=== PATIENT | male | born 1960 | race Caucasian/White ===

== ENCOUNTER 2023-12-15 13:29 | Inpatient (IN) | payer BC ==
--- NOTE | 2023-12-15 13:35 | ERPHSYRPT ---
- History of Present Illness Time Seen by Provider: 12/15/23 13:35 Source: patient, family Exam Limitations: no limitations Physician History: This is a 63-year-old white male who came in by private vehicle who has no known drug allergies and a remote history of dizziness in the past and presents again with dizziness symptoms that began a week ago and has worsened throughout the week. Associated with this was an abscess of his right "buttock" as he described it. He was placed on Bactrim DS. His symptoms are not better. The abscess opened up and has been draining. Patient drove himself into the hospital. His systolic blood pressure was 98 on arrival. He also was orthostatic. Patient states that he drinks beer daily and did have a drinks of beer "on my way here". Patient denies head injury. Patient does not have chest pain. Patient does not have shortness of breath. He has no abdominal pain. Timing/Duration: week(s) (1), worse Severity: moderate Character of Deficits: none Deficits: no difficulties Baseline/Normal Cognition: alert oriented x 3 Current Cognition: alert oriented x 3 Associated Symptoms: weakness, No confusion, No loss of consciousness, No nausea, No vomiting, No seizures, No slurred speech, No chest pain, No headache Allergies/Adverse Reactions: No Known Drug Allergies Allergy (Unverified 03/17/12 13:33) Home Medications: Lisinopril 20 mg PO DAILY 03/17/12 [History] Bupropion HCl 150 mg Sr [Wellbutrin SR 150 MG] 150 mg PO BID 08/08/18 [History] Diclofenac Sodium [Voltaren] 75 mg PO DAILY 08/08/18 [History] Smz/Tmp Ds Tablet [Bactrim Ds Tablet] 1 tab PO Q12H 12/15/23 [History] Hx Tetanus, Diphtheria Vaccination/Date Given: Yes (UNKNOWN) Hx Influenza Vaccination/Date Given: No Hx Pneumococcal Vaccination/Date Given: No Travel Risk - International Travel Have you traveled outside of the country in past 3 weeks: No - Emerging Infectious Disease Are you exhibiting symptoms associated with any current EIDs: No - Review of Systems Eyes: No Symptoms, Discharge Ears, Nose, & Throat: No Symptoms Respiratory: No Symptoms Cardiac: No Symptoms Abdominal/Gastrointestinal: No Symptoms Genitourinary Symptoms: No Symptoms Musculoskeletal: No Symptoms Skin: Cellulitis (And associated abscess right perineal region) Neurological: Dizziness Psychological: No Symptoms Endocrine: No Symptoms Hematologic/Lymphatic: No Symptoms Immunological/Allergic: No Symptoms All Other Systems: Reviewed and Negative - Past Medical History Pertinent Past Medical History: Yes Neurological History: No Pertinent History ENT History: No Pertinent History Cardiac History: Arrhythmia, High Cholesterol, Hypertension Respiratory History: No Pertinent History Endocrine Medical History: No Pertinent History Musculoskeletal History: Arthritis, Degenerative Disk Disease GI Medical History: Gallbladder Disease, GI Bleed, Ulcer History: No Pertinent History Psycho-Social History: Anxiety Male Reproductive Disorders: No Pertinent History - Past Surgical History Past Surgical History: Yes Neuro Surgical History: No Pertinent History Cardiac: No Pertinent History Respiratory: No Pertinent History Gastrointestinal: Cholecystectomy Genitourinary: No Pertinent History Musculoskeletal: Orthopedic Surgery Male Surgical History: No Pertinent History Other Surgical History: 2 back surgeries elbow surgery - Social History Smoking Status: Current every day smoker How long have you smoked: 35 yrs Exposure to second hand smoke: Yes Drug Use: none Patient Lives Alone: No - Nursing Vital Signs Nursing Vital Signs: Initial Vital Signs Temperature 98.4 F 12/15/23 13:43 Pulse Rate 71 12/15/23 13:43 Respiratory Rate 20 12/15/23 13:43 Blood Pressure 125/73 12/15/23 13:43 O2 Sat by Pulse Oximetry 98 12/15/23 13:43 Pain Scale Pain Intensity 5 - David Coma Scale Best Eye Response ([place]): (4) open spontaneously Best Verbal Response (David): (5) oriented Best Motor Response (David): (6) obeys commands [place] Total: 15 - Physical Exam General Appearance: no apparent distress, alert, anxiety, other (Patient smells of alcohol) Eye Exam: bilateral eye: normal inspection, PERRL, EOMI Ears, Nose, Throat Exam: normal ENT inspection, TMs normal, pharynx normal, moist mucous membranes Neck Exam: normal inspection, non-tender, supple, full range of motion Respiratory: normal breath sounds, lungs clear, airway intact, No chest tenderness, No respiratory distress Cardiovascular: regular rate/rhythm, normal heart sounds, normal peripheral pulses Gastrointestinal: soft, normal bowel sounds, No tenderness Male Genitalia: other (Right perineal abscess. Scrotum not involved. Drainage of pus from the abscess opening. 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 There is right perineal cellulitis associated. Scrotum not involved) SpO2 Interpretation: normal O2 Delivery: Room Air - Course Nursing assessment & vital signs reviewed: Yes EKG Interpreted by Me: RATE (99), Sinus Rhythm, LAFB, NORMAL INTERVALS, Right Bundle Branch Block, Other (No acute ischemia. QTc 459) Ordered Tests: Active Orders 24 hr Category Date Time Status [employer] STAT Care 12/15/23 14:00 Active Clean Catch Urine Specimen STAT Care 12/15/23 13:55 Active EKG-ER Only STAT Care 12/15/23 14:00 Active IV Insertion STAT Care 12/15/23 13:59 Active Orthostatic Vital Signs STAT Care 12/15/23 13:52 Active HEAD WITHOUT CONTRAST [CT] Stat Exams 12/15/23 13:56 Completed BLOOD CULTURE Stat Lab 12/15/23 14:15 Received CBC W DIFF Stat Lab 12/15/23 14:10 Completed CMP Stat Lab 12/15/23 13:30 Completed CULTURE,URINE Stat Lab 12/15/23 16:14 Received CULTURE,WOUND Stat Lab 12/15/23 13:59 Received ETHYL ALCOHOL Stat Lab 12/15/23 13:30 Completed Lactic Acid Stat Lab 12/15/23 14:20 Completed Lactic Acid Stat Lab 12/15/23 16:30 Stop Req MAGNESIUM Stat Lab 12/15/23 13:30 Completed TROPONIN Q4H Lab 12/15/23 13:30 Completed TROPONIN Q4H Lab 12/15/23 18:00 Ordered TROPONIN Q4H Lab 12/15/23 22:00 Ordered UA W/RFX UR CULTURE Stat Lab 12/15/23 16:14 Completed Urine Triage Profile Stat Lab 12/15/23 16:14 Completed Medication Summary Generic Name Dose Route Start Last Admin Trade Name Freq PRN Reason Stop Dose Admin Sodium Chloride 1,000 mls @ 250 mls/hr 12/15/23 17:30 12/15/23 17:38 Sodium Chloride 0.9% 1000 Ml IV 01/14/24 17:29 250 mls/hr .Q4H ALEXANDREA Administration Discontinued Medications Generic Name Dose Route Start Last Admin Trade Name Juany PRN Reason Stop Dose Admin Sodium Chloride 1,000 mls @ 999 mls/hr 12/15/23 13:55 12/15/23 15:04 Sodium Chloride 0.9% 1000 Ml IV 12/15/23 14:55 Infused .Q1H1M STA Infusion Sodium Chloride Confirm 12/15/23 14:01 Sodium Chloride 0.9% 1000 Ml Administered 12/15/23 14:02 Dose 1,000 mls @ ud .ROUTE .STK-MED ONE Piperacillin Sod/Tazobactam 100 mls @ 200 mls/hr 12/15/23 15:50 12/15/23 16:06 Sod 3.375 gm/ Sodium Chloride IV 12/15/23 16:19 200 mls/hr STAT ONE Administration Sodium Chloride Confirm 12/15/23 16:01 Sodium Chloride 100ml Mini-Bag Plus Administered 12/15/23 16:02 Dose 100 mls @ ud IV .STK-MED ONE Ondansetron HCl 4 mg 12/15/23 13:56 12/15/23 14:04 Ondansetron Hcl 4 Mg/2 Ml Vial IV 12/15/23 13:57 4 mg STAT ONE Administration Ondansetron HCl Confirm 12/15/23 14:00 Ondansetron Hcl 4 Mg/2 Ml Vial Administered 12/15/23 14:01 Dose 4 mg .ROUTE .STK-MED ONE Piperacillin Sod/Tazobactam Sod Confirm 12/15/23 15:59 Piperacillin/Tazobactam Sodium 3.375 Gm Vial Administered 12/15/23 16:00 Dose 3.375 gm IV .STK-MED ONE Lab/Rad Data: Laboratory Result Diagrams 12/15/23 14:10 12/15/23 13:30 Laboratory Results 12/15/23 12/15/23 12/15/23 Range/Units 16:14 16:14 14:20 WBC (4.23-9.07) x10^3/uL RBC (4.63-6.08) x10^6/uL Hgb (13.7-17.5) g/dL Hct (40.1-51.0) % MCV (79.0-92.2) fL MCH (25.7-32.2) pg MCHC (32.3-36.5) g/dL RDW (11.6-14.4) % Plt Count (163-337) x10^3/uL MPV (9.4-12.4) fL Gran % (34.0-67.9) % Immature Gran % (Auto) (0.001-0.429) % Nucleat RBC Rel Count (0.00-0.2) % Eos # (Auto) (0.04-0.54) x10^3/uL Immature Gran # (Auto) (0.001-0.031) x10^3u/L Absolute Lymphs (auto) (1.32-3.57) x10^3/uL Absolute Monos (auto) (0.30-0.82) x10^3/uL Absolute Nucleated RBC (0.00-0.012) x10^3u/L Lymphocytes % (21.8-53.1) % Monocytes % (5.3-12.2) % Eosinophils % (0.8-7.0) % Basophils % (0.2-1.2) % Absolute Granulocytes (1.78-5.38) x10^3/uL Basophils # (0.01-0.08) x10^3/uL Sodium (135-145) mmol/L Potassium (3.5-5.1) mmol/L Chloride (98-107) mmol/L Carbon Dioxide (22-30) mmol/L Anion Gap (5-15) MEQ/L BUN (9-20) mg/dL Creatinine (0.66-1.25) mg/dL Estimated GFR ML/MIN Glucose (74-106) mg/dL Lactic Acid 2.0 (0.4-2.0) Calcium (8.4-10.2) mg/dL Magnesium (1.6-2.3) mg/dL Total Bilirubin (0.2-1.3) mg/dL AST (17-59) U/L ALT (0-50) U/L Alkaline Phosphatase (38-126) U/L Troponin I (0.000-0.033) ng/mL Serum Total Protein (6.3-8.2) g/dL Albumin (3.5-5.0) g/dL Urine Color Dark Yellow (Yellow) Urine Appearance Cloudy A (Clear) Urine pH 6.0 (4.6-8.0) Ur Specific [place] 1.025 (1.005-1.030) Urine Protein 30 (Negative) Urine Glucose (UA) Negative (Negative) mg/dL Urine Ketones Trace A (Negative) Urine Blood Negative (Negative) Urine Nitrite Negative (Negative) Urine Bilirubin Negative (Negative) Urine Urobilinogen 1.0 A (0.2) mg/dL Ur Leukocyte Esterase Trace A (Negative) U Hyaline Cast (Auto) 0-2 (0-2) /LPF Urine Microscopic RBC 0-2 (0-5) /HPF Urine Microscopic WBC 0-2 (0-5) /HPF Ur Epithelial Cells Few (None Seen) /HPF Urine Bacteria Few A (None Seen) /HPF Urine Culture Reflexed YES (NO) Urine Opiates Level NEGATIVE (NEGATIVE) Ur Methadone NEGATIVE (NEGATIVE) Urine Barbiturates NEGATIVE (NEGATIVE) Ur Phencyclidine (PCP) NEGATIVE (NEGATIVE) Urine Amphetamine NEGATIVE (NEGATIVE) U Benzodiazepine Level NEGATIVE (NEGATIVE) Urine Cocaine NEGATIVE (NEGATIVE) Urine Marijuana (THC) NEGATIVE (NEGATIVE) Ethyl Alcohol (0-10) mg/dL Slides for Path Review 12/15/23 12/15/23 12/15/23 Range/Units 14:10 13:30 13:30 WBC 20.2 H (4.23-9.07) x10^3/uL RBC 4.01 L (4.63-6.08) x10^6/uL Hgb 13.7 (13.7-17.5) g/dL Hct 40.2 (40.1-51.0) % MCV 100.2 H (79.0-92.2) fL MCH 34.2 H (25.7-32.2) pg MCHC 34.1 (32.3-36.5) g/dL RDW 12.9 (11.6-14.4) % Plt Count 427 H (163-337) x10^3/uL MPV 9.5 (9.4-12.4) fL Gran % 80.9 H (34.0-67.9) % Immature Gran % (Auto) 1.6 H (0.001-0.429) % Nucleat RBC Rel Count 0.0 (0.00-0.2) % Eos # (Auto) 0.02 L (0.04-0.54) x10^3/uL Immature Gran # (Auto) 0.32 H (0.001-0.031) x10^3u/L Absolute Lymphs (auto) 1.34 (1.32-3.57) x10^3/uL Absolute Monos (auto) 2.10 H (0.30-0.82) x10^3/uL Absolute Nucleated RBC 0.00 (0.00-0.012) x10^3u/L Lymphocytes % 6.7 L (21.8-53.1) % Monocytes % 10.4 (5.3-12.2) % Eosinophils % 0.1 L (0.8-7.0) % Basophils % 0.3 (0.2-1.2) % Absolute Granulocytes 16.31 H (1.78-5.38) x10^3/uL Basophils # 0.06 (0.01-0.08) x10^3/uL Sodium 135 (135-145) mmol/L Potassium 4.5 (3.5-5.1) mmol/L Chloride 102 (98-107) mmol/L Carbon Dioxide 18 L (22-30) mmol/L Anion Gap 20.7 H (5-15) MEQ/L BUN 23 H (9-20) mg/dL Creatinine 1.58 H (0.66-1.25) mg/dL Estimated GFR 49.2 ML/MIN Glucose 105 (74-106) mg/dL Lactic Acid (0.4-2.0) Calcium 9.8 (8.4-10.2) mg/dL Magnesium 2.1 (1.6-2.3) mg/dL Total Bilirubin 0.30 (0.2-1.3) mg/dL AST 46 (17-59) U/L ALT 53 H (0-50) U/L Alkaline Phosphatase 177 H (38-126) U/L Troponin I < 0.012 (0.000-0.033) ng/mL Serum Total Protein 7.8 (6.3-8.2) g/dL Albumin 4.2 (3.5-5.0) g/dL Urine Color (Yellow) Urine Appearance (Clear) Urine pH (4.6-8.0) Ur Specific [place] (1.005-1.030) Urine Protein (Negative) Urine Glucose (UA) (Negative) mg/dL Urine Ketones (Negative) Urine Blood (Negative) Urine Nitrite (Negative) Urine Bilirubin (Negative) Urine Urobilinogen (0.2) mg/dL Ur Leukocyte Esterase (Negative) U Hyaline Cast (Auto) (0-2) /LPF Urine Microscopic RBC (0-5) /HPF Urine Microscopic WBC (0-5) /HPF Ur Epithelial Cells (None Seen) /HPF Urine Bacteria (None Seen) /HPF Urine Culture Reflexed (NO) Urine Opiates Level (NEGATIVE) Ur Methadone (NEGATIVE) Urine Barbiturates (NEGATIVE) Ur Phencyclidine (PCP) (NEGATIVE) Urine Amphetamine (NEGATIVE) U Benzodiazepine Level (NEGATIVE) Urine Cocaine (NEGATIVE) Urine Marijuana (THC) (NEGATIVE) Ethyl Alcohol 48 H (0-10) mg/dL Slides for Path Review YES - Progress Progress: improved Progress Note: 12/15/23 14:05 My medical decision making and the assignment of moderate to high complexity in this patient's medical issue today is based on review of the patient's past medical history, review the patient's medication list, reviewed patient drug allergy list, history present illness and physical findings on examination. The workup in this patient includes placement of intravenous line, obtain orthosta tic vital signs, twelve-lead EKG, lactic acid level, magnesium level, CBC, CMP, troponin level, urinalysis, urine drug screen, ethyl alcohol level, CT scan of the head and wound culture. We will also provide the patient with 4 mg intravenous Zofran and initial 1 L of normal saline crystalloid. Differential diagnosis includes but is not limited to sepsis, alcohol intoxication, electrolyte abnormalities, anemia, arrhythmia, dehydration 12/15/23 14:06 12/15/23 15:[address] scan of the head without contrast was interpreted by the radiologist and I reviewed the impression. The impression states bilateral insular cortex old lacunar infarcts. There are involutional brain changes. 12/15/23 18:[address] Bullock our telehospitalist as well as our general surgeon on- call, Dr. Hawley. I reviewed the patient presenting complaint, physical findings, vital signs on admission and results of our workup including CT scan of the head and laboratory data results. I interpreted the patient's laboratory data results. The patient does have a significant leukocytosis with a left shift. Our telehospitalist agreed to place this patient in observation as long as we could obtain a consultation by general surgery. Dr. Hawley, stated that he will see the patient in consultation. The patient is to be n.p.o. after midnight tonight. Zosyn intravenously is fine. Counseled pt/family regarding: lab results, diagnosis, rad results Medical Desision Making - Diagnostic Testing Diagnostic test were ordered, analyzed, and reviewed by me: Yes Radiological Interpretation: Reviewed by me, Teleradiologist Report - Risk of complications The pt has a high risk of morbidity or mortality based on: Decision regarding hospitilization or escalation of hosp level of care - Departure Departure Disposition: Observation Clinical Impression: Leukocytosis, Perineal abscess, superficial Condition: Fair Critical Care Time: No Referrals: [facility] DEVELOPMENT DIRECTOR [Primary Care Provider] - Follow up/PCP as directed
[2023-12-15] MEDS ORDERED: Zofran 4 MG/2 ML VIAL ONE (14:00)
[2023-12-15] MEDS ORDERED: Sodium Chloride 0.9% 1000 ML 1,000 ML ONE ×2 (14:01→17:37)
[2023-12-15] MEDS: Sodium Chloride 0.9% 1000 ML 1,000 ML IV STA (14:03)
[2023-12-15] MEDS: Zofran 4 MG/2 ML VIAL IV ONE (14:04)
[2023-12-15 14:23] LABS: Absolute Neutrophil Ct (ANC) 16.31 x10^3/uL (1.78-5.38); BASOPHIL % 0.3 % (0.2-1.2); Basophil (Absolute #) 0.06 x10^3/uL (0.01-0.08); Eosinophil % 0.1 % (0.8-7.0); Eosinophil (Absolute #) 0.02 x10^3/uL (0.04-0.54); Hematocrit 40.2 % (40.1-51.0); Hemoglobin 13.7 g/dL (13.7-17.5); IMMATURE GRAN # 0.32 x10^3u/L (0.001-0.031); IMMATURE GRAN % 1.6 % (0.001-0.429); Lymphocyte (Absolute #) 1.34 x10^3/uL (1.32-3.57); Lymphocytes % 6.7 % (21.8-53.1); Mean Cell Volume 100.2 fL (79.0-92.2); Mean Corpuscular Hemoglobin 34.2 pg (25.7-32.2); Mean Corpuscular Hgb Concent. 34.1 g/dL (32.3-36.5); Mean Platelet Volume 9.5 fL (9.4-12.4); Monocytes % 10.4 % (5.3-12.2); Neutrophil % 80.9 % (34.0-67.9); Platelet Count 427 x10^3/uL (163-337); Red Blood Count 4.01 x10^6/uL (4.63-6.08); Red Cell Distribution Width 12.9 % (11.6-14.4); White Blood Count 20.2 x10^3/uL (4.23-9.07)
[2023-12-15 14:37] LABS: ALBUMIN 4.2 g/dL (3.5-5.0); ANION GAP 20.7 MEQ/L (5-15); BILIRUBIN,TOTAL 0.3 mg/dL (0.2-1.3); Calcium 9.8 mg/dL (8.4-10.2); Creatinine 1 1.58 mg/dL (0.66-1.25); EST GLOMERULAR FILTRATION RATE 49.2 ML/MIN; MAGNESIUM 2.1 mg/dL (1.6-2.3); Potassium 4.5 mmol/L (3.5-5.1); Total Protein 7.8 g/dL (6.3-8.2)
[2023-12-15 14:54] LABS: Slide Review 1 YES
--- NOTE | 2023-12-15 15:32 | XRAY ---
CLINICAL HISTORY: Dizziness COMPARISON: None TECHNIQUE: An axial non-contrast CT scan of the brain was performed from the skull base to the high parietal region, and sagittal & coronal reconstructions were done. One of the following dose-reduction techniques was utilized for this exam. Automated exposure control, adjustment of the mA and/or kV according to patient size, and use of iterative reconstruction. CTDI: 53.92mGy; DLP:1016.25mGy-cm. FINDINGS: There are a few tiny hypodense foci noted in the insular cortex bilaterally, suggestive of old lacunar infarcts. Prominent cortical sulci . Mildly dilated supratentorial ventricular system. Newell-white matter differentiation is maintained. No midline shifts or deformity. No intracerebral or extra axial hematoma. Normal CT appearance of the posterior fossa structures namely the cerebellar hemispheres, brainstem, and cerebellar peduncles. The cerebello-pontine angles are clear. The pituitary gland, the pineal gland, and the optic chiasm are unremarkable. The osseous structures in the skull base are unremarkable. No definite calvarium fractures. The scanned paranasal sinuses show left maxillary sinusitis. IMPRESSION: 1. 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 2. Involutional brain changes . Electronically Signed by: Prabhakar Lyn MD. (12/15/2023 15:27:58 EDT)
[2023-12-15] MEDS ORDERED: PIPERACILLIN/TAZOBACTAM IV ONE ×2 (15:59→22:47)
[2023-12-15] MEDS ORDERED: Sodium Chloride 100ML MINI-BAG PLUS 100 ML IV ONE ×2 (16:01→22:48)
[2023-12-15] MEDS: PIPERACILLIN/TAZOBACTAM 3.375 GM in Sodium Chloride 100ML MINI-BAG PLUS 100 ML IV ONE (16:06)
[2023-12-15 16:36] LABS: Amphetamine,Urine NEGATIVE (NEGATIVE); Barbiturate,Urine NEGATIVE (NEGATIVE); Benzodiazepine,Urine NEGATIVE (NEGATIVE); Cocaine,Urine NEGATIVE (NEGATIVE); Methadone,Urine NEGATIVE (NEGATIVE); Opiate,Urine NEGATIVE (NEGATIVE); PCP,Urine NEGATIVE (NEGATIVE); THC,Urine NEGATIVE (NEGATIVE)
[2023-12-15 16:44] LABS: Appearance Cloudy (Clear); Bilirubin Negative (Negative); Blood Negative (Negative); Glucose, Urine Negative (Negative); Ketones Trace (Negative); Leukocyte Esterase Trace (Negative); Nitrite Negative (Negative); Protein,Urine Dip 30 (Negative); RBC 0-2 /HPF (0-5); Specific Gravity 1.025 (1.005-1.030); WBC 0-2 /HPF (0-5)
[2023-12-15 16:45] LABS: ADD URINE CULTURE? YES (NO); Bacteria Few /HPF (None Seen); Epithelial Cells Few /HPF (None Seen); Hyaline Casts 0-2 /LPF (0-2)
[2023-12-15] MEDS: Sodium Chloride 0.9% 1000 ML 1,000 ML IV SCH ×2 (17:38→20:19)
[2023-12-15] MEDS ORDERED: TYLENOL 325 MG PO PRN (18:20)
[2023-12-15] MEDS ORDERED: Zofran 4 MG/2 ML VIAL IV PRN (18:20)
[2023-12-15] MEDS ORDERED: Ativan 1 MG PO PRN (19:08)
[2023-12-15] MEDS ORDERED: Ativan 2 MG/1 ML VIAL IV PRN (19:08)
--- NOTE | 2023-12-15 19:43 | PCM.HP ---
History of Present Illness - Chief Complaint Chief Complaint: Right perineal abscess Date: 12/15/23 History of Present Illness: is a 63 year old male with a history of hypertension, daily alcohol use (6 beers daily x decades, with no history of withdrawal), and recent right perineal/gluteal abscess (treated over the past week with Bactrim) who presented to the hospital with dizziness which was worsening. The abscess and cellulitis have not improved. He denies syncope. In the ED the patient was noted to have orthostasis. He denied chest pain and dyspnea. His last beer was on the morning of presentation. No fevers and chills are reported. - Review of Systems Constitutional: No Symptoms Eyes: No Symptoms Ears, Nose, & Throat: No Symptoms Respiratory: No Symptoms Cardiac: No Symptoms Abdominal/Gastrointestinal: No Symptoms Genitourinary Symptoms: No Symptoms Musculoskeletal: No Symptoms Skin: Cellulitis, Induration Neurological: Dizziness Psychological: No Symptoms Endocrine: No Symptoms Hematologic/Lymphatic: No Symptoms Immunological/Allergic: No Symptoms All Other Systems: Reviewed and Negative Medications & Allergies Home Medications: Home Medication List Lisinopril 20 mg PO DAILY 03/17/12 [History Confirmed 12/15/23] Bupropion HCl 150 mg Sr [Wellbutrin SR 150 MG] 150 mg PO BID 08/08/18 [History Confirmed 12/15/23] Diclofenac Sodium [Voltaren] 75 mg PO DAILY 08/08/18 [History Confirmed 12/15/23] Smz/Tmp Ds Tablet [Bactrim Ds Tablet] 1 tab PO Q12H 12/15/23 [History Confirmed 12/15/23] Allergies/Adverse Reactions: Allergies Allergy/AdvReac Type Severity Reaction Status Date / Time No Known Drug Allergies Allergy Unverified 03/17/12 13:33 - Past Medical History Past Medical History: Yes Neurological History: No Pertinent History ENT History: No Pertinent History Cardiac History: Arrhythmia, High Cholesterol, Hypertension Respiratory History: No Pertinent History Endocrine Medical History: No Pertinent History Musculoskelatal History: Arthritis, Degenerative Disk Disease GI Medical History: Gallbladder Disease, GI Bleed, Ulcer History: No Pertinent History Pyscho-Social History: Anxiety Male Reproductive Disorders: No Pertinent History - Past Surgical History Past Surgical History: Yes Neuro Surgical History: No Pertinent History Cardiac History: No Pertinent History Respiratory Surgery: No Pertinent History GI Surgical History: Cholecystectomy Genitourinary Surgical Hx: No Pertinent History Musculskeletal Surgical Hx: Orthopedic Surgery Male Surgical History: No Pertinent History Other Surgical History: 2 back surgeries elbow surgery - Social History Smoking Status: Current every day smoker How long have you smoked: 35 yrs Exposure to second hand smoke: Yes Alcohol: Daily Drug Use: none - Social Determinants of Health Will the patient participate in the screening: Yes Do you worry about a steady place to live?: No Do you have any problems with any of the following?: No known problems In the past 12 months,have you had to go without utilities?: No Have you or anyone in your house had to go without enough: No Transportation Issues: No Has anyone in your support network made you feel unsafe?: No - Physical Exam Vital Signs: Vital Signs - 24 hr Temp Pulse Resp BP BP Pulse Ox 12/15/23 16:00 108 H 16 104/73 67 L 12/15/23 15:30 93 H 22 116/70 96 12/15/23 13:43 98.4 F 71 20 125/73 98 General Appearance: no apparent distress, alert Neurologic Exam: alert, oriented x 3, cooperative, phys ther II-XII nml as tested, normal mood/affect, nml cerebellar function Eye Exam: PERRL/EOMI, eyes nml inspection Ears, Nose, Throat Exam: normal ENT inspection Neck Exam: normal inspection, non-tender, supple, full range of motion Respiratory Exam: normal breath sounds, lungs clear Cardiovascular Exam: regular rate/rhythm, normal heart sounds Gastrointestinal/Abdomen Exam: soft, normal bowel sounds Back Exam: normal range of motion Extremity Exam: normal inspection, normal range of motion Skin Exam: rash (induration with drainage in right perineal area extending towards the right gluteal cleft. Erythematous and tender.) Results - Labs Lab/Micro Results: Lab Results-Last 24 Hours 12/15/23 12/15/23 12/15/23 Range/Units 13:30 13:30 14:10 WBC 20.2 H (4.23-9.07) x10^3/uL RBC 4.01 L (4.63-6.08) x10^6/uL Hgb 13.7 (13.7-17.5) g/dL Hct 40.2 (40.1-51.0) % MCV 100.2 H (79.0-92.2) fL MCH 34.2 H (25.7-32.2) pg MCHC 34.1 (32.3-36.5) g/dL RDW 12.9 (11.6-14.4) % Plt Count 427 H (163-337) x10^3/uL MPV 9.5 (9.4-12.4) fL Gran % 80.9 H (34.0-67.9) % Immature Gran % (Auto) 1.6 H (0.001-0.429) % Nucleat RBC Rel Count 0.0 (0.00-0.2) % Eos # (Auto) 0.02 L (0.04-0.54) x10^3/uL Immature Gran # (Auto) 0.32 H (0.001-0.031) x10^3u/L Absolute Lymphs (auto) 1.34 (1.32-3.57) x10^3/uL Absolute Monos (auto) 2.10 H (0.30-0.82) x10^3/uL Absolute Nucleated RBC 0.00 (0.00-0.012) x10^3u/L Lymphocytes % 6.7 L (21.8-53.1) % Monocytes % 10.4 (5.3-12.2) % Eosinophils % 0.1 L (0.8-7.0) % Basophils % 0.3 (0.2-1.2) % Absolute Granulocytes 16.31 H (1.78-5.38) x10^3/uL Basophils # 0.06 (0.01-0.08) x10^3/uL Sodium 135 (135-145) mmol/L Potassium 4.5 (3.5-5.1) mmol/L Chloride 102 (98-107) mmol/L Carbon Dioxide 18 L (22-30) mmol/L Anion Gap 20.7 H (5-15) MEQ/L BUN 23 H (9-20) mg/dL Creatinine 1.58 H (0.66-1.25) mg/dL Estimated GFR 49.2 ML/MIN Glucose 105 (74-106) mg/dL Lactic Acid (0.4-2.0) Calcium 9.8 (8.4-10.2) mg/dL Magnesium 2.1 (1.6-2.3) mg/dL Total Bilirubin 0.30 (0.2-1.3) mg/dL AST 46 (17-59) U/L ALT 53 H (0-50) U/L Alkaline Phosphatase 177 H (38-126) U/L Troponin I < 0.012 (0.000-0.033) ng/mL Serum Total Protein 7.8 (6.3-8.2) g/dL Albumin 4.2 (3.5-5.0) g/dL Urine Color (Yellow) Urine Appearance (Clear) Urine pH (4.6-8.0) Ur Specific [place] (1.005-1.030) Urine Protein (Negative) Urine Glucose (UA) (Negative) mg/dL Urine Ketones (Negative) Urine Blood (Negative) Urine Nitrite (Negative) Urine Bilirubin (Negative) Urine Urobilinogen (0.2) mg/dL Ur Leukocyte Esterase (Negative) U Hyaline Cast (Auto) (0-2) /LPF Urine Microscopic RBC (0-5) /HPF Urine Microscopic WBC (0-5) /HPF Ur Epithelial Cells (None Seen) /HPF Urine Bacteria (None Seen) /HPF Urine Culture Reflexed (NO) Urine Opiates Level (NEGATIVE) Ur Methadone (NEGATIVE) Urine Barbiturates (NEGATIVE) Ur Phencyclidine (PCP) (NEGATIVE) Urine Amphetamine (NEGATIVE) U Benzodiazepine Level (NEGATIVE) Urine Cocaine (NEGATIVE) Urine Marijuana (THC) (NEGATIVE) Ethyl Alcohol 48 H (0-10) mg/dL Slides for Path Review YES 12/15/23 12/15/23 12/15/23 Range/Units 14:20 16:14 16:14 WBC (4.23-9.07) x10^3/uL RBC (4.63-6.08) x10^6/uL Hgb (13.7-17.5) g/dL Hct (40.1-51.0) % MCV (79.0-92.2) fL MCH (25.7-32.2) pg MCHC (32.3-36.5) g/dL RDW (11.6-14.4) % Plt Count (163-337) x10^3/uL MPV (9.4-12.4) fL Gran % (34.0-67.9) % Immature Gran % (Auto) (0.001-0.429) % Nucleat RBC Rel Count (0.00-0.2) % Eos # (Auto) (0.04-0.54) x10^3/uL Immature Gran # (Auto) (0.001-0.031) x10^3u/L Absolute Lymphs (auto) (1.32-3.57) x10^3/uL Absolute Monos (auto) (0.30-0.82) x10^3/uL Absolute Nucleated RBC (0.00-0.012) x10^3u/L Lymphocytes % (21.8-53.1) % Monocytes % (5.3-12.2) % Eosinophils % (0.8-7.0) % Basophils % (0.2-1.2) % Absolute Granulocytes (1.78-5.38) x10^3/uL Basophils # (0.01-0.08) x10^3/uL Sodium (135-145) mmol/L Potassium (3.5-5.1) mmol/L Chloride (98-107) mmol/L Carbon Dioxide (22-30) mmol/L Anion Gap (5-15) MEQ/L BUN (9-20) mg/dL Creatinine (0.66-1.25) mg/dL Estimated GFR ML/MIN Glucose (74-106) mg/dL Lactic Acid 2.0 (0.4-2.0) Calcium (8.4-10.2) mg/dL Magnesium (1.6-2.3) mg/dL Total Bilirubin (0.2-1.3) mg/dL AST (17-59) U/L ALT (0-50) U/L Alkaline Phosphatase (38-126) U/L Troponin I (0.000-0.033) ng/mL Serum Total Protein (6.3-8.2) g/dL Albumin (3.5-5.0) g/dL Urine Color Dark Yellow (Yellow) Urine Appearance Cloudy A (Clear) Urine pH 6.0 (4.6-8.0) Ur Specific [place] 1.025 (1.005-1.030) Urine Protein 30 (Negative) Urine Glucose (UA) Negative (Negative) mg/dL Urine Ketones Trace A (Negative) Urine Blood Negative (Negative) Urine Nitrite Negative (Negative) Urine Bilirubin Negative (Negative) Urine Urobilinogen 1.0 A (0.2) mg/dL Ur Leukocyte Esterase Trace A (Negative) U Hyaline Cast (Auto) 0-2 (0-2) /LPF Urine Microscopic RBC 0-2 (0-5) /HPF Urine Microscopic WBC 0-2 (0-5) /HPF Ur Epithelial Cells Few (None Seen) /HPF Urine Bacteria Few A (None Seen) /HPF Urine Culture Reflexed YES (NO) Urine Opiates Level NEGATIVE (NEGATIVE) Ur Methadone NEGATIVE (NEGATIVE) Urine Barbiturates NEGATIVE (NEGATIVE) Ur Phencyclidine (PCP) NEGATIVE (NEGATIVE) Urine Amphetamine NEGATIVE (NEGATIVE) U Benzodiazepine Level NEGATIVE (NEGATIVE) Urine Cocaine NEGATIVE (NEGATIVE) Urine Marijuana (THC) NEGATIVE (NEGATIVE) Ethyl Alcohol (0-10) mg/dL Slides for Path Review 12/15/23 Range/Units 17:56 WBC (4.23-9.07) x10^3/uL RBC (4.63-6.08) x10^6/uL Hgb (13.7-17.5) g/dL Hct (40.1-51.0) % MCV (79.0-92.2) fL MCH (25.7-32.2) pg MCHC (32.3-36.5) g/dL RDW (11.6-14.4) % Plt Count (163-337) x10^3/uL MPV (9.4-12.4) fL Gran % (34.0-67.9) % Immature Gran % (Auto) (0.001-0.429) % Nucleat RBC Rel Count (0.00-0.2) % Eos # (Auto) (0.04-0.54) x10^3/uL Immature Gran # (Auto) (0.001-0.031) x10^3u/L Absolute Lymphs (auto) (1.32-3.57) x10^3/uL Absolute Monos (auto) (0.30-0.82) x10^3/uL Absolute Nucleated RBC (0.00-0.012) x10^3u/L Lymphocytes % (21.8-53.1) % Monocytes % (5.3-12.2) % Eosinophils % (0.8-7.0) % Basophils % (0.2-1.2) % Absolute Granulocytes (1.78-5.38) x10^3/uL Basophils # (0.01-0.08) x10^3/uL Sodium (135-145) mmol/L Potassium (3.5-5.1) mmol/L Chloride (98-107) mmol/L Carbon Dioxide (22-30) mmol/L Anion Gap (5-15) MEQ/L BUN (9-20) mg/dL Creatinine (0.66-1.25) mg/dL Estimated GFR ML/MIN Glucose (74-106) mg/dL Lactic Acid (0.4-2.0) Calcium (8.4-10.2) mg/dL Magnesium (1.6-2.3) mg/dL Total Bilirubin (0.2-1.3) mg/dL AST (17-59) U/L ALT (0-50) U/L Alkaline Phosphatase (38-126) U/L Troponin I < 0.012 (0.000-0.033) ng/mL Serum Total Protein (6.3-8.2) g/dL Albumin (3.5-5.0) g/dL Urine Color (Yellow) Urine Appearance (Clear) Urine pH (4.6-8.0) Ur Specific [place] (1.005-1.030) Urine Protein (Negative) Urine Glucose (UA) (Negative) mg/dL Urine Ketones (Negative) Urine Blood (Negative) Urine Nitrite (Negative) Urine Bilirubin (Negative) Urine Urobilinogen (0.2) mg/dL Ur Leukocyte Esterase (Negative) U Hyaline Cast (Auto) (0-2) /LPF Urine Microscopic RBC (0-5) /HPF Urine Microscopic WBC (0-5) /HPF Ur Epithelial Cells (None Seen) /HPF Urine Bacteria (None Seen) /HPF Urine Culture Reflexed (NO) Urine Opiates Level (NEGATIVE) Ur Methadone (NEGATIVE) Urine Barbiturates (NEGATIVE) Ur Phencyclidine (PCP) (NEGATIVE) Urine Amphetamine (NEGATIVE) U Benzodiazepine Level (NEGATIVE) Urine Cocaine (NEGATIVE) Urine Marijuana (THC) (NEGATIVE) Ethyl Alcohol (0-10) mg/dL Slides for Path Review - Radiology Impressions Radiology Exams & Impressions: Radiology Procedures Category Date Time Status HEAD WITHOUT CONTRAST [CT] Stat Exams 12/15/23 13:56 Completed Assessment/Plan (1) Perineal abscess, superficial Current Visit: Yes Status: Acute Assessment & Plan: IV antibiotics. Surgery consulted with plan for I&D in AM. Seen by Dr. Hawley. Analgesia. Code(s): L02.215 - CUTANEOUS ABSCESS OF PERINEUM (2) JAMSHID (acute kidney injury) Current Visit: Yes Status: Acute Assessment & Plan: IV fluids. Hold lisinopril. Code(s): N17.9 - ACUTE KIDNEY FAILURE, UNSPECIFIED (3) Dizziness Current Visit: Yes Status: Acute Assessment & Plan: Receiving IV fluids. Reassess postop. Code(s): R42 - DIZZINESS AND GIDDINESS (4) Alcohol use disorder Current Visit: Yes Status: Acute Assessment & Plan: Will place on protocol for alcohol withdrawal assessment. No history of prior withdrawal. Code(s): F10.90 - ALCOHOL USE, UNSPECIFIED, UNCOMPLICATED (5) Leukocytosis Current Visit: Yes Status: Acute Assessment & Plan: Due to infection. Trend counts. Code(s): D72.829 - ELEVATED WHITE BLOOD CELL COUNT, UNSPECIFIED Telemedicine Encounter - Telemedicine Encounter Telemedicine Encounter: "The entirety of this encounter was performed via Telemedicine" This visit was performed using real-time audio and video connection between my location and thepatients locationwith the assistance of a surrogateat the patients location. Written or verbal consent was obtained from the patient/guardian to perform this [facility]. Any patient questions regarding the telemedicine interaction were answered.
[2023-12-15] MEDS: Wellbutrin SR 150 MG PO SCH (20:55)
[2023-12-15] MEDS: MORPHINE SULFATE 2 MG INJ IV PRN (20:55)
[2023-12-15] MEDS: DESYREL 50 MG PO PRN (20:55)
[2023-12-15] MEDS: PIPERACILLIN/TAZOBACTAM 3.375 GM in Sodium Chloride 100ML MINI-BAG PLUS 100 ML IV SCH (23:38)
[2023-12-16] MEDS ORDERED: PIPERACILLIN/TAZOBACTAM IV ONE (04:21)
[2023-12-16] MEDS ORDERED: Sodium Chloride 100ML MINI-BAG PLUS 100 ML IV ONE (04:21)
[2023-12-16 05:52] LABS: Absolute Neutrophil Ct (ANC) 9.47 x10^3/uL (1.78-5.38); BASOPHIL % 0.5 % (0.2-1.2); Basophil (Absolute #) 0.07 x10^3/uL (0.01-0.08); Eosinophil % 0.8 % (0.8-7.0); Hematocrit 35.7 % (40.1-51.0); Hemoglobin 11.9 g/dL (13.7-17.5); IMMATURE GRAN # 0.18 x10^3u/L (0.001-0.031); IMMATURE GRAN % 1.4 % (0.001-0.429); Lymphocyte (Absolute #) 1.85 x10^3/uL (1.32-3.57); Lymphocytes % 14.4 % (21.8-53.1); Mean Cell Volume 100.6 fL (79.0-92.2); Mean Corpuscular Hemoglobin 33.5 pg (25.7-32.2); Mean Corpuscular Hgb Concent. 33.3 g/dL (32.3-36.5); Mean Platelet Volume 9.4 fL (9.4-12.4); Monocyte (Absolute #) 1.14 x10^3/uL (0.30-0.82); Monocytes % 8.9 % (5.3-12.2); Platelet Count 385 x10^3/uL (163-337); Red Blood Count 3.55 x10^6/uL (4.63-6.08); Red Cell Distribution Width 13.2 % (11.6-14.4); White Blood Count 12.8 x10^3/uL (4.23-9.07)
[2023-12-16 06:33] LABS: INR 0.89 (0.8-3.0); PROTIME 9.8 SECONDS (9.4-12.5)
[2023-12-16 06:43] LABS: ALBUMIN 3.3 g/dL (3.5-5.0); ANION GAP 12.4 MEQ/L (5-15); BILIRUBIN,TOTAL 0.3 mg/dL (0.2-1.3); Calcium 8.9 mg/dL (8.4-10.2); Creatinine 1 0.97 mg/dL (0.66-1.25); EST GLOMERULAR FILTRATION RATE 88.3 ML/MIN; Potassium 4.6 mmol/L (3.5-5.1); Total Protein 6.4 g/dL (6.3-8.2)
[2023-12-16] MEDS: Lactated Ringers 1,000 ML IV SCH ×2 (08:27→15:13)
[2023-12-16] MEDS ORDERED: Sensorcaine 0.25% 10 ML ONE (10:08)
[2023-12-16] MEDS ORDERED: Reglan 10 MG/2 ML ONE (10:56)
[2023-12-16] MEDS ORDERED: Zofran 4 MG/2 ML VIAL ONE (10:56)
[2023-12-16] MEDS ORDERED: Decadron 4 MG INJ ONE (10:56)
--- NOTE | 2023-12-16 11:08 | XRAY ---
CLINICAL HISTORY: Cough COMPARISON: None. TECHNIQUE: X-ray of the chest was performed in 1 view: AP projection. FINDINGS: Haziness is seen in both lower zones. Prominent thoracic aorta. The lungs are well aerated. No hydrothorax or pneumothorax was seen. Age-indeterminate posttraumatic changes seen in the fourth, fifth, and sixth ribs on the right side. There is no evidence of any focal area of consolidation. The hilar and pulmonary vasculature is normal. The heart size is within normal limits. The costophrenic angles are clear. IMPRESSION: 1. Haziness is seen in both lower zones, would recommend clinical and lab correlation to rule out pulmonary infection. 2. Age-indeterminate posttraumatic changes seen in the fourth, fifth and sixth ribs on right side. 3. Prominent thoracic aorta. Electronically Signed by: Prabhakar Lyn MD. (12/16/2023 11:04:24 EDT)
[2023-12-16] MEDS ORDERED: SUBLIMAZE 100 MCG/2 ML ONE (11:10)
[2023-12-16] MEDS ORDERED: DIPRIVAN 200 MG/20 ML IV ONE ×2 (11:12→11:39)
--- NOTE | 2023-12-16 11:51 | PCM.NOTE ---
Date and Time: 12/16/23 1145 Subjective Assessment: 12/16/23 is a 63 year old male with a history of hypertension, daily alcohol use (6 beers daily x decades, with no history of withdrawal) and recent right perineal/gluteal abscess (treated over the past week with Bactrim). He presented to the hospital on 12/15/23 with dizziness which was worsening. The abscess and cellulitis have not improved with OP antibiotics and is now draining. He denies syncope. In the ED the patient was noted to have orthostasis. He denied chest pain and dyspnea. His last beer was on the morning of presentation. No fevers and chills are reported. Antibiotics and IVF started IP. Plan is for him to have surgery today at 11:00 AM. He is asking for pain meds to be chnaged from Morphine as this is not helping his pain at all. He is rating his pain from wound 10/10. He is also on the CIWA protocol. BC X2 and wound culture pending. WBC is improving today 12.8. He denies PC, SOB, abd. pain, N/V/D. - Review of Systems Constitutional: No Fever, No Chills Eyes: No Symptoms Ears, Nose, & Throat: No Symptoms Respiratory: No Cough, No Short Of Breath Cardiac: No Chest Pain, No Edema, No Syncope Abdominal/Gastrointestinal: No Abdominal Pain, No Nausea, No Vomiting, No Diarrhea Genitourinary Symptoms: No Dysuria Musculoskeletal: No Back Pain, No Neck Pain Skin: Other (sharath-rectal abcess with drainage and pain), No Rash Neurological: No Dizziness, No Focal Weakness, No Sensory Changes Psychological: No Symptoms Endocrine: No Symptoms Hematologic/Lymphatic: No Symptoms Immunological/Allergic: No Symptoms Objective Exam General Appearance: no apparent distress, alert Neurologic Exam: alert, oriented x 3, cooperative, normal mood/affect, nml cerebellar function, sensation nml, No motor deficits Skin Exam: normal color, warm, dry Wound Assessment: Skin/Wound Assessment Wound/Incision Assessment Start: 12/15/23 18:21 Text: Status: Active Freq: Q6H Protocol: Document 12/16/23 07:41 [facility] (Rec: 12/16/23 07:42 [facility] [id number]) Wound/Incision Assessment Right Buttock Wound Assessment Shift Assessment Wound Type abscess Wound Stage Non Pressure Wound Drainage Amount Minimal Drainage Description Yellow Drainage Odor Mild Odor General Appearance Open to air,Reddened,Draining Wound Bed Greatest Portion Red (Granulation) Wound Bed Lesser Portion Red (Granulation) Surrounding Tissue Bright Red Comment Patient continues to refuse dressing at this time. Wound Photo Photo Taken No Eye Exam: PERRL, EOMI, eyes nml inspection Ears, Nose, Throat Exam: normal ENT inspection, pharynx normal, moist mucous membranes Neck Exam: normal inspection, non-tender, supple, full range of motion Respiratory Exam: normal breath sounds, lungs clear, No respiratory distress Cardiovascular Exam: regular rate/rhythm, normal heart sounds Gastrointestinal/Abdomen Exam: soft, No tenderness, No mass Extremity Exam: normal inspection, normal range of motion Back Exam: normal inspection, normal range of motion, No CVA tenderness, No vertebral tenderness Male Genitalia Exam: deferred Rectal Exam: tenderness (per-rectal abcess) Objective Data Vital Signs: Vital Signs - 24 hr Temp Pulse Resp BP BP Pulse Ox 12/16/23 08:46 97.3 F 74 16 132/75 94 L 12/16/23 08:00 97.3 F 74 16 132/75 94 L 12/16/23 04:00 96.9 F 77 18 139/72 96 12/16/23 00:00 98.5 F 76 18 115/65 96 12/15/23 20:00 99.4 F 82 17 118/65 96 12/15/23 16:00 108 H 16 104/73 67 L 12/15/23 15:30 93 H 22 116/70 96 12/15/23 13:43 98.4 F 71 20 125/73 98 Pain Assessment - Last Documented Pain Intensity 4 Pain Scale Used 0-10 Pain Scale Intake and Output: Intake & Output 12/13/23 12/14/23 12/15/23 12/16/23 11:59 11:59 11:59 11:59 Intake Total 1048 Output Total 2024 Balance -977 Weight 77.7 kg Lab Results: Lab Results-Last 24 Hours 12/15/23 12/15/23 12/15/23 Range/Units 13:30 13:30 14:10 WBC 20.2 H (4.23-9.07) x10^3/uL RBC 4.01 L (4.63-6.08) x10^6/uL Hgb 13.7 (13.7-17.5) g/dL Hct 40.2 (40.1-51.0) % MCV 100.2 H (79.0-92.2) fL MCH 34.2 H (25.7-32.2) pg MCHC 34.1 (32.3-36.5) g/dL RDW 12.9 (11.6-14.4) % Plt Count 427 H (163-337) x10^3/uL MPV 9.5 (9.4-12.4) fL Gran % 80.9 H (34.0-67.9) % Immature Gran % (Auto) 1.6 H (0.001-0.429) % Nucleat RBC Rel Count 0.0 (0.00-0.2) % Eos # (Auto) 0.02 L (0.04-0.54) x10^3/uL Immature Gran # (Auto) 0.32 H (0.001-0.031) x10^3u/L Absolute Lymphs (auto) 1.34 (1.32-3.57) x10^3/uL Absolute Monos (auto) 2.10 H (0.30-0.82) x10^3/uL Absolute Nucleated RBC 0.00 (0.00-0.012) x10^3u/L Lymphocytes % 6.7 L (21.8-53.1) % Monocytes % 10.4 (5.3-12.2) % Eosinophils % 0.1 L (0.8-7.0) % Basophils % 0.3 (0.2-1.2) % Absolute Granulocytes 16.31 H (1.78-5.38) x10^3/uL Basophils # 0.06 (0.01-0.08) x10^3/uL PT (9.4-12.5) SECONDS INR (0.8-3.0) APTT (25.1-36.5) SECONDS Sodium 135 (135-145) mmol/L Potassium 4.5 (3.5-5.1) mmol/L Chloride 102 (98-107) mmol/L Carbon Dioxide 18 L (22-30) mmol/L Anion Gap 20.7 H (5-15) MEQ/L BUN 23 H (9-20) mg/dL Creatinine 1.58 H (0.66-1.25) mg/dL Estimated GFR 49.2 ML/MIN Glucose 105 (74-106) mg/dL Lactic Acid (0.4-2.0) Calcium 9.8 (8.4-10.2) mg/dL Magnesium 2.1 (1.6-2.3) mg/dL Total Bilirubin 0.30 (0.2-1.3) mg/dL AST 46 (17-59) U/L ALT 53 H (0-50) U/L Alkaline Phosphatase 177 H (38-126) U/L Troponin I < 0.012 (0.000-0.033) ng/mL NT-Pro-B Natriuret Pep (<300) pg/mL Serum Total Protein 7.8 (6.3-8.2) g/dL Albumin 4.2 (3.5-5.0) g/dL Urine Color (Yellow) Urine Appearance (Clear) Urine pH (4.6-8.0) Ur Specific [place] (1.005-1.030) Urine Protein (Negative) Urine Glucose (UA) (Negative) mg/dL Urine Ketones (Negative) Urine Blood (Negative) Urine Nitrite (Negative) Urine Bilirubin (Negative) Urine Urobilinogen (0.2) mg/dL Ur Leukocyte Esterase (Negative) U Hyaline Cast (Auto) (0-2) /LPF Urine Microscopic RBC (0-5) /HPF Urine Microscopic WBC (0-5) /HPF Ur Epithelial Cells (None Seen) /HPF Urine Bacteria (None Seen) /HPF Urine Culture Reflexed (NO) Urine Opiates Level (NEGATIVE) Ur Methadone (NEGATIVE) Urine Barbiturates (NEGATIVE) Ur Phencyclidine (PCP) (NEGATIVE) Urine Amphetamine (NEGATIVE) U Benzodiazepine Level (NEGATIVE) Urine Cocaine (NEGATIVE) Urine Marijuana (THC) (NEGATIVE) Ethyl Alcohol 48 H (0-10) mg/dL Slides for Path Review YES 12/15/23 12/15/23 12/15/23 Range/Units 14:20 16:14 16:14 WBC (4.23-9.07) x10^3/uL RBC (4.63-6.08) x10^6/uL Hgb (13.7-17.5) g/dL Hct (40.1-51.0) % MCV (79.0-92.2) fL MCH (25.7-32.2) pg MCHC (32.3-36.5) g/dL RDW (11.6-14.4) % Plt Count (163-337) x10^3/uL MPV (9.4-12.4) fL Gran % (34.0-67.9) % Immature Gran % (Auto) (0.001-0.429) % Nucleat RBC Rel Count (0.00-0.2) % Eos # (Auto) (0.04-0.54) x10^3/uL Immature Gran # (Auto) (0.001-0.031) x10^3u/L Absolute Lymphs (auto) (1.32-3.57) x10^3/uL Absolute Monos (auto) (0.30-0.82) x10^3/uL Absolute Nucleated RBC (0.00-0.012) x10^3u/L Lymphocytes % (21.8-53.1) % Monocytes % (5.3-12.2) % Eosinophils % (0.8-7.0) % Basophils % (0.2-1.2) % Absolute Granulocytes (1.78-5.38) x10^3/uL Basophils # (0.01-0.08) x10^3/uL PT (9.4-12.5) SECONDS INR (0.8-3.0) APTT (25.1-36.5) SECONDS Sodium (135-145) mmol/L Potassium (3.5-5.1) mmol/L Chloride (98-107) mmol/L Carbon Dioxide (22-30) mmol/L Anion Gap (5-15) MEQ/L BUN (9-20) mg/dL Creatinine (0.66-1.25) mg/dL Estimated GFR ML/MIN Glucose (74-106) mg/dL Lactic Acid 2.0 (0.4-2.0) Calcium (8.4-10.2) mg/dL Magnesium (1.6-2.3) mg/dL Total Bilirubin (0.2-1.3) mg/dL AST (17-59) U/L ALT (0-50) U/L Alkaline Phosphatase (38-126) U/L Troponin I (0.000-0.033) ng/mL NT-Pro-B Natriuret Pep (<300) pg/mL Serum Total Protein (6.3-8.2) g/dL Albumin (3.5-5.0) g/dL Urine Color Dark Yellow (Yellow) Urine Appearance Cloudy A (Clear) Urine pH 6.0 (4.6-8.0) Ur Specific [place] 1.025 (1.005-1.030) Urine Protein 30 (Negative) Urine Glucose (UA) Negative (Negative) mg/dL Urine Ketones Trace A (Negative) Urine Blood Negative (Negative) Urine Nitrite Negative (Negative) Urine Bilirubin Negative (Negative) Urine Urobilinogen 1.0 A (0.2) mg/dL Ur Leukocyte Esterase Trace A (Negative) U Hyaline Cast (Auto) 0-2 (0-2) /LPF Urine Microscopic RBC 0-2 (0-5) /HPF Urine Microscopic WBC 0-2 (0-5) /HPF Ur Epithelial Cells Few (None Seen) /HPF Urine Bacteria Few A (None Seen) /HPF Urine Culture Reflexed YES (NO) Urine Opiates Level NEGATIVE (NEGATIVE) Ur Methadone NEGATIVE (NEGATIVE) Urine Barbiturates NEGATIVE (NEGATIVE) Ur Phencyclidine (PCP) NEGATIVE (NEGATIVE) Urine Amphetamine NEGATIVE (NEGATIVE) U Benzodiazepine Level NEGATIVE (NEGATIVE) Urine Cocaine NEGATIVE (NEGATIVE) Urine Marijuana (THC) NEGATIVE (NEGATIVE) Ethyl Alcohol (0-10) mg/dL Slides for Path Review 12/15/23 12/15/23 12/16/23 Range/Units 17:56 22:31 05:25 WBC (4.23-9.07) x10^3/uL RBC (4.63-6.08) x10^6/uL Hgb (13.7-17.5) g/dL Hct (40.1-51.0) % MCV (79.0-92.2) fL MCH (25.7-32.2) pg MCHC (32.3-36.5) g/dL RDW (11.6-14.4) % Plt Count (163-337) x10^3/uL MPV (9.4-12.4) fL Gran % (34.0-67.9) % Immature Gran % (Auto) (0.001-0.429) % Nucleat RBC Rel Count (0.00-0.2) % Eos # (Auto) (0.04-0.54) x10^3/uL Immature Gran # (Auto) (0.001-0.031) x10^3u/L Absolute Lymphs (auto) (1.32-3.57) x10^3/uL Absolute Monos (auto) (0.30-0.82) x10^3/uL Absolute Nucleated RBC (0.00-0.012) x10^3u/L Lymphocytes % (21.8-53.1) % Monocytes % (5.3-12.2) % Eosinophils % (0.8-7.0) % Basophils % (0.2-1.2) % Absolute Granulocytes (1.78-5.38) x10^3/uL Basophils # (0.01-0.08) x10^3/uL PT 9.8 (9.4-12.5) SECONDS INR 0.89 (0.8-3.0) APTT 29.0 (25.1-36.5) SECONDS Sodium (135-145) mmol/L Potassium (3.5-5.1) mmol/L Chloride (98-107) mmol/L Carbon Dioxide (22-30) mmol/L Anion Gap (5-15) MEQ/L BUN (9-20) mg/dL Creatinine (0.66-1.25) mg/dL Estimated GFR ML/MIN Glucose (74-106) mg/dL Lactic Acid (0.4-2.0) Calcium (8.4-10.2) mg/dL Magnesium (1.6-2.3) mg/dL Total Bilirubin (0.2-1.3) mg/dL AST (17-59) U/L ALT (0-50) U/L Alkaline Phosphatase (38-126) U/L Troponin I < 0.012 < 0.012 (0.000-0.033) ng/mL NT-Pro-B Natriuret Pep (<300) pg/mL Serum Total Protein (6.3-8.2) g/dL Albumin (3.5-5.0) g/dL Urine Color (Yellow) Urine Appearance (Clear) Urine pH (4.6-8.0) Ur Specific [place] (1.005-1.030) Urine Protein (Negative) Urine Glucose (UA) (Negative) mg/dL Urine Ketones (Negative) Urine Blood (Negative) Urine Nitrite (Negative) Urine Bilirubin (Negative) Urine Urobilinogen (0.2) mg/dL Ur Leukocyte Esterase (Negative) U Hyaline Cast (Auto) (0-2) /LPF Urine Microscopic RBC (0-5) /HPF Urine Microscopic WBC (0-5) /HPF Ur Epithelial Cells (None Seen) /HPF Urine Bacteria (None Seen) /HPF Urine Culture Reflexed (NO) Urine Opiates Level (NEGATIVE) Ur Methadone (NEGATIVE) Urine Barbiturates (NEGATIVE) Ur Phencyclidine (PCP) (NEGATIVE) Urine Amphetamine (NEGATIVE) U Benzodiazepine Level (NEGATIVE) Urine Cocaine (NEGATIVE) Urine Marijuana (THC) (NEGATIVE) Ethyl Alcohol (0-10) mg/dL Slides for Path Review 12/16/23 12/16/23 Range/Units 05:25 05:25 WBC 12.8 H (4.23-9.07) x10^3/uL RBC 3.55 L (4.63-6.08) x10^6/uL Hgb 11.9 L (13.7-17.5) g/dL Hct 35.7 L (40.1-51.0) % MCV 100.6 H (79.0-92.2) fL MCH 33.5 H (25.7-32.2) pg MCHC 33.3 (32.3-36.5) g/dL RDW 13.2 (11.6-14.4) % Plt Count 385 H (163-337) x10^3/uL MPV 9.4 (9.4-12.4) fL Gran % 74.0 H (34.0-67.9) % Immature Gran % (Auto) 1.4 H (0.001-0.429) % Nucleat RBC Rel Count 0.0 (0.00-0.2) % Eos # (Auto) 0.10 (0.04-0.54) x10^3/uL Immature Gran # (Auto) 0.18 H (0.001-0.031) x10^3u/L Absolute Lymphs (auto) 1.85 (1.32-3.57) x10^3/uL Absolute Monos (auto) 1.14 H (0.30-0.82) x10^3/uL Absolute Nucleated RBC 0.00 (0.00-0.012) x10^3u/L Lymphocytes % 14.4 L (21.8-53.1) % Monocytes % 8.9 (5.3-12.2) % Eosinophils % 0.8 (0.8-7.0) % Basophils % 0.5 (0.2-1.2) % Absolute Granulocytes 9.47 H (1.78-5.38) x10^3/uL Basophils # 0.07 (0.01-0.08) x10^3/uL PT (9.4-12.5) SECONDS INR (0.8-3.0) APTT (25.1-36.5) SECONDS Sodium 134 L (135-145) mmol/L Potassium 4.6 (3.5-5.1) mmol/L Chloride 105 (98-107) mmol/L Carbon Dioxide 21 L (22-30) mmol/L Anion Gap 12.4 (5-15) MEQ/L BUN 15 (9-20) mg/dL Creatinine 0.97 (0.66-1.25) mg/dL Estimated GFR 88.3 ML/MIN Glucose 96 (74-106) mg/dL Lactic Acid (0.4-2.0) Calcium 8.9 (8.4-10.2) mg/dL Magnesium (1.6-2.3) mg/dL Total Bilirubin 0.30 (0.2-1.3) mg/dL AST 35 (17-59) U/L ALT 42 (0-50) U/L Alkaline Phosphatase 129 H (38-126) U/L Troponin I (0.000-0.033) ng/mL NT-Pro-B Natriuret Pep 710 (<300) pg/mL Serum Total Protein 6.4 (6.3-8.2) g/dL Albumin 3.3 L (3.5-5.0) g/dL Urine Color (Yellow) Urine Appearance (Clear) Urine pH (4.6-8.0) Ur Specific [place] (1.005-1.030) Urine Protein (Negative) Urine Glucose (UA) (Negative) mg/dL Urine Ketones (Negative) Urine Blood (Negative) Urine Nitrite (Negative) Urine Bilirubin (Negative) Urine Urobilinogen (0.2) mg/dL Ur Leukocyte Esterase (Negative) U Hyaline Cast (Auto) (0-2) /LPF Urine Microscopic RBC (0-5) /HPF Urine Microscopic WBC (0-5) /HPF Ur Epithelial Cells (None Seen) /HPF Urine Bacteria (None Seen) /HPF Urine Culture Reflexed (NO) Urine Opiates Level (NEGATIVE) Ur Methadone (NEGATIVE) Urine Barbiturates (NEGATIVE) Ur Phencyclidine (PCP) (NEGATIVE) Urine Amphetamine (NEGATIVE) U Benzodiazepine Level (NEGATIVE) Urine Cocaine (NEGATIVE) Urine Marijuana (THC) (NEGATIVE) Ethyl Alcohol (0-10) mg/dL Slides for Path Review Radiology Exams: Radiology Procedures Category Date Time Status CHEST 1 VIEW (PORTABLE) Stat Exams 12/16/23 10:01 Completed HEAD WITHOUT CONTRAST [CT] Stat Exams 12/15/23 13:56 Completed Assessment/Plan (1) Perineal abscess, superficial Current Visit: Yes Status: Acute Assessment & Plan: - Surgery at 11:00 am today - WBC 12.8 - IV antibiotics, IVF - IV pain medication changed to Dilaudid PRN for pain control - BC x2 and wound culture pending - NPO this AM Code(s): L02.215 - CUTANEOUS ABSCESS OF PERINEUM (2) Leukocytosis Current Visit: Yes Status: Acute Assessment & Plan: - WBC improved 12.8 - IV antibiotics for Per-rectal abscess Code(s): D72.829 - ELEVATED WHITE BLOOD CELL COUNT, UNSPECIFIED (3) JAMSHID (acute kidney injury) Current Visit: Yes Status: Acute Assessment & Plan: - resolved with IVF - IVF changed to LR @ 50 ml/hr for surgery Code(s): N17.9 - ACUTE KIDNEY FAILURE, UNSPECIFIED (4) Alcohol use disorder Current Visit: Yes Status: Acute Assessment & Plan: - [place] protocol - advised cessation Code(s): F10.90 - ALCOHOL USE, UNSPECIFIED, UNCOMPLICATED (5) Dizziness Current Visit: Yes Status: Acute Assessment & Plan: - CT head: 12/14 IMPRESSION: 1. 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 2. Involutional brain changes . - CXR: 1. Haziness is seen in both lower zones, would recommend clinical and lab correlation to rule out pulmonary infection. 2. Age-indeterminate posttraumatic changes seen in the fourth, fifth and sixth ribs on right side. 3. Prominent thoracic aorta. - No C/o Cp or SOB - sxs may be 2:2 infection VTE: SCD's D/C plan: 2-3 days Code status: Full Code(s): R42 - DIZZINESS AND GIDDINESS
[2023-12-16] MEDS: Acidophilus TABLET PO SCH (12:42)
[2023-12-16] MEDS: VITAMIN B-1 100 MG PO SCH (12:42)
[2023-12-16] MEDS: THERAGRAN MULTIVITAMIN PO SCH (12:43)
[2023-12-16] MEDS: Hydromorphone 1 mg/ml Injection IV PRN (12:43)
[2023-12-16] MEDS: FOLATE 1 MG PO SCH (12:43)
[2023-12-16] MEDS: FLAGYL 500 MG IVPB 500 MG/100 ML BAG IV SCH (13:29)
[2023-12-16] MEDS: NORCO 5/325 MG PO PRN (15:19)
[2023-12-17] MEDS: Protonix 40MG Tablet PO SCH (00:33)
[2023-12-17 05:34] LABS: Hematocrit 35.5 % (40.1-51.0); Hemoglobin 11.7 g/dL (13.7-17.5); Mean Cell Volume 100.9 fL (79.0-92.2); Mean Corpuscular Hemoglobin 33.2 pg (25.7-32.2); Mean Platelet Volume 9.2 fL (9.4-12.4); Platelet Count 417 x10^3/uL (163-337); Red Blood Count 3.52 x10^6/uL (4.63-6.08); Red Cell Distribution Width 12.6 % (11.6-14.4)
[2023-12-17 06:00] LABS: ALBUMIN 3.4 g/dL (3.5-5.0); ANION GAP 10.4 MEQ/L (5-15); BILIRUBIN,TOTAL 0.3 mg/dL (0.2-1.3); Calcium 9.1 mg/dL (8.4-10.2); Creatinine 1 0.79 mg/dL (0.66-1.25); EST GLOMERULAR FILTRATION RATE 100.4 ML/MIN; Potassium 4.6 mmol/L (3.5-5.1); Total Protein 6.5 g/dL (6.3-8.2)
[2023-12-17 08:55] LABS: Iron 56 ug/dL (49-181); Iron Saturation 29 % (20-39); TIBC 195 ug/dL (261-497)
[2023-12-17] MEDS: Ativan 2 MG/1 ML VIAL IV PRN (10:00)
[2023-12-17] MEDS: Zestril 20 MG PO SCH (10:11)
--- NOTE | 2023-12-17 11:08 | PCM.NOTE ---
Date and Time: 12/17/23 1052 Subjective Assessment: 12/16/23 is a 63 year old male with a history of hypertension, daily alcohol use (6 beers daily x decades, with no history of withdrawal) and recent right perineal/gluteal abscess (treated over the past week with Bactrim). He presented to the hospital on 12/15/23 with dizziness which was worsening. The abscess and cellulitis have not improved with OP antibiotics and is now draining. He denies syncope. In the ED the patient was noted to have orthostasis. He denied chest pain and dyspnea. His last beer was on the morning of presentation. No fevers and chills are reported. Antibiotics and IVF started IP. Plan is for him to have surgery today at 11:00 AM. He is asking for pain meds to be chnaged from Morphine as this is not helping his pain at all. He is rating his pain from wound 10/10. He is also on the CIWA protocol. BC X2 and wound culture pending. WBC is improving today 12.8. He denies CP, SOB, abd. pain, N/V/D. 12/17/23 Pt resting in bed. He is having increased tremors today. He also explained he felt as if someone was touching him today and nobody was there. He reposrted to the nurse he thought the ceiling was moving today. Advised pt to be honest with staff about what he is experiencing so that he can have the proper treatment and medications. CIWA protocol continued. Seizures precautions. Pt placed on tele today, there was an order on admission to be placed but was never started. WBC up at 14.0 POD 1 from sharath-rectal abscess procedure. Continue zosyn and flagyl, and dressing changes per GS. PLT elevated- could be acute phase reaction. Iron panel ordered for further evaluation. Na+ 129- trend. Did receive IVF yesterday and may be r/t this. He denies excessive oral intake IP. Will recheck Na+ at noon. He continues to feel dizzy when sitting up. May need OP PT, will have PT eval tomorrow. He said he feels fine when walking. He denies CP, SOB, abd. pain, N/V/D. - Review of Systems Constitutional: No Fever, No Chills Eyes: No Symptoms Ears, Nose, & Throat: No Symptoms Respiratory: No Cough, No Short Of Breath Cardiac: No Chest Pain, No Edema, No Syncope Abdominal/Gastrointestinal: No Abdominal Pain, No Nausea, No Vomiting, No Diarrhea Genitourinary Symptoms: No Dysuria Musculoskeletal: No Back Pain, No Neck Pain Skin: Skin Lesions (sharath-rectal wound), No Rash Neurological: Tremors, No Dizziness, No Focal Weakness, No Sensory Changes Psychological: No Symptoms, Alcohol Abuse, Hallucinations Endocrine: No Symptoms Hematologic/Lymphatic: No Symptoms Immunological/Allergic: No Symptoms Objective Exam General Appearance: no apparent distress, alert Neurologic Exam: alert, oriented x 3, cooperative, normal mood/affect, nml c erebellar function, sensation nml, other (Shaky), No motor deficits Skin Exam: normal color, warm, dry, other (sharath- rectal wound covered) Wound Assessment: Skin/Wound Assessment Wound/Incision Assessment Start: 12/15/23 18:21 Text: Status: Active Freq: Q6H Protocol: Document 12/17/23 08:00 [facility] (Rec: 12/17/23 10:19 [facility] [id number]) Wound/Incision Assessment Right Buttock Wound Assessment Shift Assessment Wound Type Incision Wound Stage Non Pressure Wound Dressing Status Reinforced Drainage Amount Minimal Drainage Description Serosanguineous Comment bulky dressing intact - very small amount of shadowing on dressing Wound Photo Photo Taken No Eye Exam: PERRL, EOMI, eyes nml inspection Ears, Nose, Throat Exam: normal ENT inspection, pharynx normal, moist mucous membranes Neck Exam: normal inspection, non-tender, supple, full range of motion Respiratory Exam: normal breath sounds, lungs clear, No respiratory distress Cardiovascular Exam: regular rate/rhythm, normal heart sounds Gastrointestinal/Abdomen Exam: soft, No tenderness, No mass Extremity Exam: normal inspection, normal range of motion Back Exam: normal inspection, normal range of motion, No CVA tenderness, No vertebral tenderness Male Genitalia Exam: deferred Rectal Exam: deferred Objective Data Vital Signs: Vital Signs - 24 hr Temp Pulse Resp BP BP Pulse Ox 12/17/23 10:00 68 16 140/74 12/17/23 07:24 95.9 F 72 19 147/77 99 12/17/23 03:51 97.3 F 66 19 137/76 98 12/17/23 00:00 97.9 F 63 16 137/71 98 12/16/23 19:31 97.9 F 68 18 129/71 98 12/16/23 15:10 97.8 F 69 15 159/71 95 12/16/23 14:10 97.4 F 72 15 139/66 94 L 12/16/23 13:10 97.3 F 73 15 139/78 96 12/16/23 12:55 97.3 F 72 16 155/75 93 L 12/16/23 12:40 97.4 F 64 16 159/74 99 12/16/23 12:25 97.8 F 80 15 170/79 95 Pain Assessment - Last Documented Pain Intensity 10 Pain Scale Used 0-10 Pain Scale Intake and Output: Intake & Output 12/14/23 12/15/23 12/16/23 12/17/23 11:59 11:59 11:59 11:59 Intake Total 1048 2701 Output Total 9606 1375 Balance -977 1326 Weight 77.7 kg Lab Results: Lab Results-Last 24 Hours 12/17/23 12/17/23 12/17/23 Range/Units 05:22 05:22 07:47 WBC 14.0 H (4.23-9.07) x10^3/uL RBC 3.52 L (4.63-6.08) x10^6/uL Hgb 11.7 L (13.7-17.5) g/dL Hct 35.5 L (40.1-51.0) % MCV 100.9 H (79.0-92.2) fL MCH 33.2 H (25.7-32.2) pg MCHC 33.0 (32.3-36.5) g/dL RDW 12.6 (11.6-14.4) % Plt Count 417 H (163-337) x10^3/uL MPV 9.2 L (9.4-12.4) fL Sodium 129 L (135-145) mmol/L Potassium 4.6 (3.5-5.1) mmol/L Chloride 99 (98-107) mmol/L Carbon Dioxide 24 (22-30) mmol/L Anion Gap 10.4 (5-15) MEQ/L BUN 14 (9-20) mg/dL Creatinine 0.79 (0.66-1.25) mg/dL Estimated GFR 100.4 ML/MIN Glucose 109 H (74-106) mg/dL Calcium 9.1 (8.4-10.2) mg/dL Iron (49-181) ug/dL TIBC (261-497) ug/dL Iron Saturation (20-39) % Ferritin 237 (17.9-464) ng/mL Total Bilirubin 0.30 (0.2-1.3) mg/dL AST 46 (17-59) U/L ALT 51 H (0-50) U/L Alkaline Phosphatase 126 (38-126) U/L Serum Total Protein 6.5 (6.3-8.2) g/dL Albumin 3.4 L (3.5-5.0) g/dL Vitamin B12 945 H (239-931) pg/mL Folic Acid 12.0 (2.76 - >20) ng/mL 12/17/23 Range/Units 07:47 WBC (4.23-9.07) x10^3/uL RBC (4.63-6.08) x10^6/uL Hgb (13.7-17.5) g/dL Hct (40.1-51.0) % MCV (79.0-92.2) fL MCH (25.7-32.2) pg MCHC (32.3-36.5) g/dL RDW (11.6-14.4) % Plt Count (163-337) x10^3/uL MPV (9.4-12.4) fL Sodium (135-145) mmol/L Potassium (3.5-5.1) mmol/L Chloride (98-107) mmol/L Carbon Dioxide (22-30) mmol/L Anion Gap (5-15) MEQ/L BUN (9-20) mg/dL Creatinine (0.66-1.25) mg/dL Estimated GFR ML/MIN Glucose (74-106) mg/dL Calcium (8.4-10.2) mg/dL Iron 56 (49-181) ug/dL TIBC 195 L (261-497) ug/dL Iron Saturation 29 (20-39) % Ferritin (17.9-464) ng/mL Total Bilirubin (0.2-1.3) mg/dL AST (17-59) U/L ALT (0-50) U/L Alkaline Phosphatase (38-126) U/L Serum Total Protein (6.3-8.2) g/dL Albumin (3.5-5.0) g/dL Vitamin B12 (239-931) pg/mL Folic Acid (2.76 - >20) ng/mL Radiology Exams: Radiology Procedures Category Date Time Status CHEST 1 VIEW (PORTABLE) Stat Exams 12/16/23 10:01 Completed HEAD WITHOUT CONTRAST [CT] Stat Exams 12/15/23 13:56 Completed Assessment/Plan (1) Perineal abscess, superficial Current Visit: Yes Status: Acute Code(s): L02.215 - CUTANEOUS ABSCESS OF PERINEUM (2) Leukocytosis Current Visit: Yes Status: Acute Code(s): D72.829 - ELEVATED WHITE BLOOD CELL COUNT, UNSPECIFIED (3) JAMSHID (acute kidney injury) Current Visit: Yes Status: Acute Code(s): N17.9 - ACUTE KIDNEY FAILURE, UNSPECIFIED (4) Alcohol use disorder Current Visit: Yes Status: Acute Code(s): F10.90 - ALCOHOL USE, UNSPECIFIED, UNCOMPLICATED (5) Dizziness Current Visit: Yes Status: Acute Assessment & Plan: (1) Perineal abscess, superficial Current Visit: Yes Status: Acute Assessment & Plan: - Surgery at 11:00 am today - WBC 12.8 - IV antibiotics, IVF - IV pain medication changed to Dilaudid PRN for pain control - BC x2 and wound culture pending - NPO this AM 12/16 - POD #1 - IVF stopped yesterday evening - pt eating and drinking well - OCntinue IV antibiotocs - Per GS ok to d/c per hospitalist when ready with OP antibiotics and wound care set up OP. PT eval for wound vac and f/u appointments. Code(s): L02.215 - CUTANEOUS ABSCESS OF PERINEUM (2) Leukocytosis Current Visit: Yes Status: Acute Assessment & Plan: - WBC improved 12.8 - IV antibiotics for Per-rectal abscess 12/16 - WBC 14.- may be acute reaction to procedure yesterday Code(s): D72.829 - ELEVATED WHITE BLOOD CELL COUNT, UNSPECIFIED (3) JAMSHID (acute kidney injury) Current Visit: Yes Status: Acute Assessment & Plan: - resolved with IVF - IVF changed to LR @ 50 ml/hr for surgery 12/16 - IVF stopped yesterday evening - JAMSHID resolved Code(s): N17.9 - ACUTE KIDNEY FAILURE, UNSPECIFIED (4) Alcohol use disorder Current Visit: Yes Status: Acute Assessment & Plan: - CIWA protocol - advised cessation 12/16 - seizure precautions - increased shaking, and hallucinations Code(s): F10.90 - ALCOHOL USE, UNSPECIFIED, UNCOMPLICATED (5) Dizziness Current Visit: Yes Status: Acute Assessment & Plan: - CT head: 12/14 IMPRESSION: 1. 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 2. Involutional brain changes . - CXR: 1. Haziness is seen in both lower zones, would recommend clinical and lab correlation to rule out pulmonary infection. 2. Age-indeterminate posttraumatic changes seen in the fourth, fifth and sixth ribs on right side. 3. Prominent thoracic aorta. - No C/o Cp or SOB - sxs may be 2:2 infection 12/16 - Continued dizziness with sitting up - PT eval Code(s): R42 - DIZZINESS AND GIDDINESS Code(s): R42 - DIZZINESS AND GIDDINESS (6) Hyponatremia Current Visit: Yes Status: Acute Assessment & Plan: - Na+ 129- trend - IV fluids stopped yesterday evening - Pt not drinking increased amount of fluids. VTE: SCD's D/C plan: 1-2 days Code status: Full Code(s): E87.1 - HYPO-OSMOLALITY AND HYPONATREMIA
--- NOTE | 2023-12-17 15:40 | CONS ---
HISTORY: A 63-year-old apparently had an infection down in the perineal area that has been going on for 1 week. He had been on some antibiotic. It spontaneously drained, but the ER physician called last night and felt he needed to be admitted and possibly opened up in the operating room the following day. PAST MEDICAL HISTORY: Hypertension, hypercholesterolemia, alcohol use. He has had degenerative disc disease, arthritis, had some anxiety as well. PAST SURGICAL HISTORY: He has had a couple back surgery, had gallbladder removed. Also has had some elbow and finger surgery in the past. FAMILY HISTORY: Negative with regard to this problem, according to the patient. SOCIAL HISTORY: Daily alcohol use, 6 beers a day. One pack a day smoker. REVIEW OF SYSTEMS: Twelve systems reviewed. No chest pain or palpitations. Other systems negative or noncontributory as above and per preadmission questionnaire. LAB DATA AND TESTS: White count 20,200, hemoglobin 13.7, platelet count 127,000. Liver function tests: Alkaline phosphatase 167, ALT 53, total bilirubin 0.3. PHYSICAL EXAMINATION: GENERAL: No acute distress. HEENT: Sclerae nonicteric. NECK: No JVD. CHEST: Equal excursion, nonlabored breathing. CARDIOVASCULAR: Regular rate and rhythm. ABDOMEN: Soft, nondistended. EXTREMITIES: No cyanosis or edema. SKIN: On his right perirectal area and some at the perineal area, he has some cellulitis, induration and some spontaneous drainage. NEUROLOGIC: Alert. PSYCHIATRIC: Appropriate affect. IMPRESSION: A 63-year-old, asked to see for perineal, possible perirectal abscess. I feel the patient would benefit from debridement and drainage. General risks of bleeding, infection, risk of ongoing infection, possibly requiring other procedures, risk of developing fistula in ano, possibility of requiring other referrals or procedure, general risk of anesthesia, DVT, PE, pneumonia, possibility of no improvement. He understands and agrees to proceed. Otherwise, continue his medical management, his alcohol use disorder, his hypertension, has had some renal insufficiency, and history of hyperlipidemia. He is in agreement with the plan.
--- NOTE | 2023-12-17 15:42 | OP ---
SURGERY DATE/TIME: 12/16/2023 8724 - 4591 PREOPERATIVE DIAGNOSIS: Cellulitis question abscess perineal/perirectal area. POSTOPERATIVE DIAGNOSIS: Necrotizing soft tissue infection perineum and perirectal area. PROCEDURES: Excisional debridement of devitalized skin, subcutaneous fat, and portion of underlying fascia, 2 separate areas; 7 x 5 cm x 2 cm deep, second area 2.5 x 2 cm x 2 cm deep. Excisional debridement of devitalized skin, subcutaneous fat, and portion of fascia down to viable tissue. Tract between the 2 approximately 14 cm. SURGEON: Dashawn Hawley MD ANESTHESIA: General. ESTIMATED BLOOD LOSS: Less than 10 or 15 mL. INDICATIONS: As above. Consent obtained including risks of ongoing infection, possibility of requiring other procedures, possibility of developing fistula in ano, but no limited to. Consent obtained. DESCRIPTION OF PROCEDURE AND FINDINGS: Patient was taken to the operating room, general anesthesia induced, prepped and draped in usual sterile fashion in dorsal lithotomy position. After official time-out, no disagreement in planned procedure. He had 2 open areas, a little bit more perirectal area that I clamped, it tracked up towards a bulge at the base of the scrotum and the perineum. This area was opened up, noted to have necrotizing skin and subcutaneous fat and fascia underneath, an area 7 x 5 cm x 2 cm deep. This was excised, excisionally debrided sharply with a scalpel down with electrocautery cutting function down to viable tissue. Small perirectal area was opened up, 2.5 x 2 cm x 2 cm deep. There was actually a tract about 14 cm long in between the 2. Culture was taken. The devitalized tissue was sent for deep culture as well as for pathology. I debrided down to viable tissue and drained any underlying infection. Copious irrigation, irrigating clear. The wound was then packed with a some Iodoform packing. There was no family to discuss any findings.
[2023-12-17] MEDS: Diflucan/Saline 0.2G/100ML PREMIX*** 100 ML IV SCH (17:43)
[2023-12-18 04:46] LABS: Hematocrit 38.4 % (40.1-51.0); Hemoglobin 12.9 g/dL (13.7-17.5); Mean Cell Volume 100.5 fL (79.0-92.2); Mean Corpuscular Hemoglobin 33.8 pg (25.7-32.2); Mean Corpuscular Hgb Concent. 33.6 g/dL (32.3-36.5); Mean Platelet Volume 8.8 fL (9.4-12.4); Platelet Count 440 x10^3/uL (163-337); Red Blood Count 3.82 x10^6/uL (4.63-6.08); Red Cell Distribution Width 12.4 % (11.6-14.4); White Blood Count 8.6 x10^3/uL (4.23-9.07)
[2023-12-18 05:20] LABS: ALBUMIN 3.5 g/dL (3.5-5.0); ANION GAP 9.4 MEQ/L (5-15); BILIRUBIN,TOTAL 0.3 mg/dL (0.2-1.3); Calcium 9.3 mg/dL (8.4-10.2); Creatinine 1 0.83 mg/dL (0.66-1.25); Potassium 4.4 mmol/L (3.5-5.1); Total Protein 6.7 g/dL (6.3-8.2)
--- NOTE | 2023-12-18 05:27 | PCM.NOTE ---
Date and Time: 12/18/23 0525 Subjective Assessment: is a 63 year old male with a pmhx of HTN, alcoholism (6 beers daily x decades, with no history of withdrawal) and recent right perineal/gluteal abscess (treated over the past week with Bactrim) admitted 12/15/23 after experiencing dizziness and a non-healing abscess and cellulitis which have failed OP antibiotics. Surgery consulted with intervention 12/16/23. IP antibiotics -Vanc/Zosyn/Flagyl with wound cultures pending with Gram + ID. CIWA protocol. 12/18/23: Met with patient bedside. Endorses continued perineal pain at surgical site 8/10 on numerical scale. He is anxious for discharge. Discussed that culture is now showing gram + organism. Will add vancomycin to antimicrobial regimen. S urgery is okay with discharge when medically stable. Will set up with wound therapy as OP. Patient's mother will help with dressing changes. - Review of Systems Constitutional: No Symptoms Eyes: No Symptoms Ears, Nose, & Throat: No Symptoms Respiratory: No Symptoms Cardiac: No Symptoms Abdominal/Gastrointestinal: No Symptoms Genitourinary Symptoms: No Symptoms Musculoskeletal: No Symptoms Skin: Other (right perineal wound with dressing) Neurological: No Symptoms Psychological: No Symptoms Endocrine: No Symptoms Hematologic/Lymphatic: No Symptoms Immunological/Allergic: No Symptoms Objective Exam General Appearance: no apparent distress Neurologic Exam: alert, oriented x 3, cooperative Skin Exam: other (see wound assessment for right perineal wound) Wound Assessment: Skin/Wound Assessment Wound/Incision Assessment Start: 12/15/23 18:21 Text: Status: Active Freq: Q6H Protocol: Document 12/18/23 02:00 [place] (Rec: 12/18/23 02:24 [place] [id number]) Wound/Incision Assessment right perineal Wound Assessment Shift Assessment Wound Type ulceration Wound Stage Non Pressure Wound Comment dressing CDI - LIZZIE wound Perineum Wound Assessment Shift Assessment Wound Type perineal abscess s/p I&D Wound Stage Non Pressure Wound Comment dressing CDI - LIZZIE wound Right Buttock Wound Assessment Shift Assessment Wound Type gluteal abscess s/p I&D Wound Stage Non Pressure Wound Comment dressing CDI - LIZZIE wound Wound Photo Photo Taken No Eye Exam: PERRL Ears, Nose, Throat Exam: normal ENT inspection Neck Exam: normal inspection Respiratory Exam: normal breath sounds, lungs clear Cardiovascular Exam: regular rate/rhythm, normal heart sounds Gastrointestinal/Abdomen Exam: soft, normal bowel sounds Extremity Exam: normal inspection Back Exam: normal inspection Male Genitalia Exam: deferred Rectal Exam: deferred Objective Data Vital Signs: Vital Signs - 24 hr Temp Pulse Resp BP BP Pulse Ox 12/18/23 04:00 97.5 F 68 18 136/78 98 12/17/23 23:37 98.1 F 62 18 137/76 95 12/17/23 20:00 97.9 F 69 18 139/81 94 L 12/17/23 16:00 96.5 F 65 18 131/67 96 12/17/23 11:28 96.1 F 69 19 119/59 96 12/17/23 10:00 68 16 140/74 12/17/23 07:24 95.9 F 72 19 147/77 99 Pain Assessment - Last Documented Pain Intensity 8 Pain Scale Used 0-10 Pain Scale Intake and Output: Intake & Output 12/15/23 12/16/23 12/17/23 12/18/23 11:59 11:59 11:59 11:59 Intake Total 1048 2701 2161 Output Total 2025 1375 1675 Balance -977 1326 486 Weight 77.7 kg Lab Results: Lab Results-Last 24 Hours 12/17/23 12/17/23 12/17/23 Range/Units 05:22 05:22 07:47 WBC 14.0 H (4.23-9.07) x10^3/uL RBC 3.52 L (4.63-6.08) x10^6/uL Hgb 11.7 L (13.7-17.5) g/dL Hct 35.5 L (40.1-51.0) % MCV 100.9 H (79.0-92.2) fL MCH 33.2 H (25.7-32.2) pg MCHC 33.0 (32.3-36.5) g/dL RDW 12.6 (11.6-14.4) % Plt Count 417 H (163-337) x10^3/uL MPV 9.2 L (9.4-12.4) fL Sodium 129 L (135-145) mmol/L Potassium 4.6 (3.5-5.1) mmol/L Chloride 99 (98-107) mmol/L Carbon Dioxide 24 (22-30) mmol/L Anion Gap 10.4 (5-15) MEQ/L BUN 14 (9-20) mg/dL Creatinine 0.79 (0.66-1.25) mg/dL Estimated GFR 100.4 ML/MIN Glucose 109 H (74-106) mg/dL Calcium 9.1 (8.4-10.2) mg/dL Iron (49-181) ug/dL TIBC (261-497) ug/dL Iron Saturation (20-39) % Ferritin 237 (17.9-464) ng/mL Total Bilirubin 0.30 (0.2-1.3) mg/dL AST 46 (17-59) U/L ALT 51 H (0-50) U/L Alkaline Phosphatase 126 (38-126) U/L Serum Total Protein 6.5 (6.3-8.2) g/dL Albumin 3.4 L (3.5-5.0) g/dL Vitamin B12 945 H (239-931) pg/mL Folic Acid 12.0 (2.76 - >20) ng/mL 12/17/23 12/17/23 12/17/23 Range/Units 07:47 12:13 18:08 WBC (4.23-9.07) x10^3/uL RBC (4.63-6.08) x10^6/uL Hgb (13.7-17.5) g/dL Hct (40.1-51.0) % MCV (79.0-92.2) fL MCH (25.7-32.2) pg MCHC (32.3-36.5) g/dL RDW (11.6-14.4) % Plt Count (163-337) x10^3/uL MPV (9.4-12.4) fL Sodium 129 L 131 L (135-145) mmol/L Potassium (3.5-5.1) mmol/L Chloride (98-107) mmol/L Carbon Dioxide (22-30) mmol/L Anion Gap (5-15) MEQ/L BUN (9-20) mg/dL Creatinine (0.66-1.25) mg/dL Estimated GFR ML/MIN Glucose (74-106) mg/dL Calcium (8.4-10.2) mg/dL Iron 56 (49-181) ug/dL TIBC 195 L (261-497) ug/dL Iron Saturation 29 (20-39) % Ferritin (17.9-464) ng/mL Total Bilirubin (0.2-1.3) mg/dL AST (17-59) U/L ALT (0-50) U/L Alkaline Phosphatase (38-126) U/L Serum Total Protein (6.3-8.2) g/dL Albumin (3.5-5.0) g/dL Vitamin B12 (239-931) pg/mL Folic Acid (2.76 - >20) ng/mL 12/18/23 12/18/23 Range/Units 04:41 04:41 WBC 8.6 (4.23-9.07) x10^3/uL RBC 3.82 L (4.63-6.08) x10^6/uL Hgb 12.9 L (13.7-17.5) g/dL Hct 38.4 L (40.1-51.0) % MCV 100.5 H (79.0-92.2) fL MCH 33.8 H (25.7-32.2) pg MCHC 33.6 (32.3-36.5) g/dL RDW 12.4 (11.6-14.4) % Plt Count 440 H (163-337) x10^3/uL MPV 8.8 L (9.4-12.4) fL Sodium 133 L (135-145) mmol/L Potassium 4.4 (3.5-5.1) mmol/L Chloride 101 (98-107) mmol/L Carbon Dioxide 27 (22-30) mmol/L Anion Gap 9.4 (5-15) MEQ/L BUN 12 (9-20) mg/dL Creatinine 0.83 (0.66-1.25) mg/dL Estimated GFR 99.0 ML/MIN Glucose 102 (74-106) mg/dL Calcium 9.3 (8.4-10.2) mg/dL Iron (49-181) ug/dL TIBC (261-497) ug/dL Iron Saturation (20-39) % Ferritin (17.9-464) ng/mL Total Bilirubin 0.30 (0.2-1.3) mg/dL AST 44 (17-59) U/L ALT 57 H (0-50) U/L Alkaline Phosphatase 121 (38-126) U/L Serum Total Protein 6.7 (6.3-8.2) g/dL Albumin 3.5 (3.5-5.0) g/dL Vitamin B12 (239-931) pg/mL Folic Acid (2.76 - >20) ng/mL Radiology Exams: Radiology Procedures Category Date Time Status CHEST 1 VIEW (PORTABLE) Stat Exams 12/16/23 10:01 Completed Assessment/Plan (1) Perineal abscess, superficial Current Visit: Yes Status: Acute Assessment & Plan: -PODS#2 -Surgery following - intervention 12/16/23 -Zosyn/Flagyl initiated - continue add vanc for gram + showing on cultures -wond cultures pending with gram + ID and -yeast present -Blood cultures NGTD -Urine cult negative Code(s): L02.215 - CUTANEOUS ABSCESS OF PERINEUM (2) JAMSHID (acute kidney injury) Current Visit: Yes Status: Acute Assessment & Plan: -on admission 1.58- baseline creat around 1 -resolved Code(s): N17.9 - ACUTE KIDNEY FAILURE, UNSPECIFIED (3) Alcohol use disorder Current Visit: Yes Status: Acute Assessment & Plan: -6 beers daily -[facility] protocol -no symptoms of w/d Code(s): F10.90 - ALCOHOL USE, UNSPECIFIED, UNCOMPLICATED (4) Dizziness Current Visit: Yes Status: Acute Assessment & Plan: - CT head: 12/14 IMPRESSION: 1. 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 2. Involutional brain changes . - CXR: 1. Haziness is seen in both lower zones, would recommend clinical and lab correlation to rule out pulmonary infection. 2. Age-indeterminate posttraumatic changes seen in the fourth, fifth and sixth ribs on right side. 3. Prominent thoracic aorta. Code(s): R42 - DIZZINESS AND GIDDINESS (5) Hyponatremia Current Visit: Yes Status: Acute Assessment & Plan: - Na+ 133 - IV fluids stopped 12/16/23 - Pt not drinking increased amount of fluids. Code(s): E87.1 - HYPO-OSMOLALITY AND HYPONATREMIA (6) Leukocytosis Current Visit: Yes Status: Acute Assessment & Plan: -2/2 to perineal abscess see plan above -resolved VTE: SCD's D/C plan: 1-2 days Code status: Full Code(s): D72.829 - ELEVATED WHITE BLOOD CELL COUNT, UNSPECIFIED
[2023-12-18] MEDS: PHARMACY DOSING REQUIRED: VANCOMYCIN IV STA (11:08)
[2023-12-18] MEDS: VANCOMYCIN 1.25 GM/250 ML BAG 1.25 GM/250 ML PIGGYBACK IV SCH (12:30)
[2023-12-18] MEDS: Hydromorphone 1 mg/ml Injection IV PRN (12:30)
[2023-12-18] MEDS: Diflucan/Saline 0.2G/100ML PREMIX*** 100 ML IV SCH (17:44)
[2023-12-19 00:10] VITALS: RESP 16
[2023-12-19 04:35] LABS: Absolute Neutrophil Ct (ANC) 6.53 x10^3/uL (1.78-5.38); Eosinophil % 1.1 % (0.8-7.0); Eosinophil (Absolute #) 0.11 x10^3/uL (0.04-0.54); Hematocrit 39.4 % (40.1-51.0); Lymphocyte (Absolute #) 2.06 x10^3/uL (1.32-3.57); Lymphocytes % 20.8 % (21.8-53.1); Mean Cell Volume 100.3 fL (79.0-92.2); Mean Corpuscular Hemoglobin 33.1 pg (25.7-32.2); Mean Platelet Volume 9.1 fL (9.4-12.4); Monocyte (Absolute #) 0.82 x10^3/uL (0.30-0.82); Monocytes % 8.3 % (5.3-12.2); Neutrophil % 65.8 % (34.0-67.9); Platelet Count 577 x10^3/uL (163-337); Red Blood Count 3.93 x10^6/uL (4.63-6.08); Red Cell Distribution Width 12.6 % (11.6-14.4); White Blood Count 9.9 x10^3/uL (4.23-9.07)
--- NOTE | 2023-12-19 05:12 | PCM.NOTE ---
Date and Time: 12/19/23 0511 Subjective Assessment: is a 63 year old male with a pmhx of HTN, alcoholism (6 beers daily x decades, with no history of withdrawal) and recent right perineal/gluteal abscess (treated over the past week with Bactrim) admitted 12/15/23 after experiencing dizziness and a non-healing abscess and cellulitis which have failed OP antibiotics. Surgery consulted with intervention 12/16/23. IP antibiotics -Vanc/Zosyn/Flagyl with wound cultures pending with Gram + ID. CIWA protocol. 12/18/23: Met with patient bedside. Endorses continued perineal pain at surgical site 8/10 on numerical scale. He is anxious for discharge. Discussed that culture is now showing gram + organism. Will add vancomycin to antimicrobial regimen. S urgery is okay with discharge when medically stable. Will set up with wound therapy as OP. Patient's mother will help with dressing changes. Objective Exam Wound Assessment: Skin/Wound Assessment Wound/Incision Assessment Start: 12/15/23 18:21 Text: Status: Active Freq: Q6H Protocol: Document 12/19/23 02:00 DEMETRIS (Rec: 12/19/23 02:11 DEMETRIS [id number]) Wound/Incision Assessment right perineal Wound Assessment Shift Assessment Wound Type ULCERATION Wound Stage Non Pressure Wound Dressing Status Dry & Intact Drainage Amount None Perineum Wound Assessment Shift Assessment Wound Type ABCESS Wound Stage Non Pressure Wound Dressing Status Dry & Intact Drainage Amount None Drainage Odor None/Absent Primary Dressing BORDERED GAUZE Right Buttock Wound Assessment Shift Assessment Wound Type gluteal abscess s/p I&D Wound Stage Non Pressure Wound Dressing Status Dry & Intact,Changed Drainage Amount None Primary Dressing BORDERED GAUZE Objective Data Vital Signs: Vital Signs - 24 hr Temp Pulse Resp BP Pulse Ox 12/19/23 04:00 98.1 F 76 16 186/97 97 12/19/23 00:00 97.9 F 67 16 145/76 97 12/18/23 20:00 98.1 F 75 20 135/72 97 12/18/23 16:00 97.2 F 80 16 133/89 91 L 12/18/23 11:56 98.3 F 80 19 135/85 94 L 12/18/23 07:44 97.2 F 75 19 178/81 94 L Pain Assessment - Last Documented Pain Intensity 8 Pain Scale Used 0-10 Pain Scale Intake and Output: Intake & Output 12/16/23 12/17/23 12/18/23 12/19/23 11:59 11:59 11:59 11:59 Intake Total 1048 2701 2902 240 Output Total 3388 3795 1875 300 Balance -977 1326 1027 -60 Weight 77.7 kg Lab Results: Lab Results-Last 24 Hours 12/18/23 12/19/23 Range/Units 04:41 04:24 WBC 9.9 H (4.23-9.07) x10^3/uL RBC 3.93 L (4.63-6.08) x10^6/uL Hgb 13.0 L (13.7-17.5) g/dL Hct 39.4 L (40.1-51.0) % MCV 100.3 H (79.0-92.2) fL MCH 33.1 H (25.7-32.2) pg MCHC 33.0 (32.3-36.5) g/dL RDW 12.6 (11.6-14.4) % Plt Count 577 H (163-337) x10^3/uL MPV 9.1 L (9.4-12.4) fL Gran % 65.8 (34.0-67.9) % Immature Gran % (Auto) 3.0 H (0.001-0.429) % Nucleat RBC Rel Count 0.0 (0.00-0.2) % Eos # (Auto) 0.11 (0.04-0.54) x10^3/uL Immature Gran # (Auto) 0.30 H (0.001-0.031) x10^3u/L Absolute Lymphs (auto) 2.06 (1.32-3.57) x10^3/uL Absolute Monos (auto) 0.82 (0.30-0.82) x10^3/uL Absolute Nucleated RBC 0.00 (0.00-0.012) x10^3u/L Lymphocytes % 20.8 L (21.8-53.1) % Monocytes % 8.3 (5.3-12.2) % Eosinophils % 1.1 (0.8-7.0) % Basophils % 1.0 (0.2-1.2) % Absolute Granulocytes 6.53 H (1.78-5.38) x10^3/uL Basophils # 0.10 H (0.01-0.08) x10^3/uL Sodium 133 L (135-145) mmol/L Potassium 4.4 (3.5-5.1) mmol/L Chloride 101 (98-107) mmol/L Carbon Dioxide 27 (22-30) mmol/L Anion Gap 9.4 (5-15) MEQ/L BUN 12 (9-20) mg/dL Creatinine 0.83 (0.66-1.25) mg/dL Estimated GFR 99.0 ML/MIN Glucose 102 (74-106) mg/dL Calcium 9.3 (8.4-10.2) mg/dL Total Bilirubin 0.30 (0.2-1.3) mg/dL AST 44 (17-59) U/L ALT 57 H (0-50) U/L Alkaline Phosphatase 121 (38-126) U/L Serum Total Protein 6.7 (6.3-8.2) g/dL Albumin 3.5 (3.5-5.0) g/dL Multi-Disciplinary Progress Notes: Multi-Disciplinary Progress Notes 12/18/23 14:12 Case Management Note by Lavern Lancaster CALLED AND S/W [facility]- PATIENT SCHEDULED FOR AN APT ON 12/26/23@818, WILL SEND CLINICAL CLOSER TO TIME OF DC TO [phone] Initialized on 12/18/23 14:12 - END OF NOTE 12/18/23 10:25 Pharmacy Note by Kraig Leung Pharmacokinetic dosing service Date: 12/18/2023 Time: 1030 Objective: Patient: SUSANA SARAVIA Floor: 113 Age: 63 yo Serum creatinine: 0.83 mg/dL Height: 68 Inches Weight (kg): 77 Diagnosis: CELLULITIS, BUTTOCK ABSCESS Relevant medical/social history: Cultures and sensitivities: GRAM POSITIVE PENDING Other labs: Assessment: IBW (kg): 68.40 Dosing wt(kg): 77 Estimated Creatinine clearance (ml/min): 89.3 CRCL method: Cockcroft and Gault using ibw(default). Drug selected: Vancomycin Loading dose (mg): 0 Vd (liters): 57.8 (factor used: 0.75 L/kg) Heriberto (hr-1): 0.079 Half life (hrs): 8.77 Recommended dose: 1250 mg Interval: 12 hrs Infusion time (hrs): 1.5 Predicted peak (mcg/mL): 33.3 Predicted trough (mcg/mL): 14.53 Total body weight is being used for vancomycin dosing. Renal function is stable [XXX ] /unstable [ ] Recommendations: Give Vancomycin 1250 mg q 12 hrs with an expected Cpeak of 33.3 mcg/ml and an expected Ctrough of 14.53 mcg/ml Renal dosing of other antibiotics (review renal dosing of other medications and list guidelines here): SD Thank you for the consult, will continue to follow. Signature: KRAIG LEUNG Initialized on 12/18/23 10:25 - END OF NOTE Assessment/Plan (1) Perineal abscess, superficial Current Visit: Yes Status: Acute Assessment & Plan: -PODS#2 -Surgery following - intervention 12/16/23 -Zosyn/Flagyl initiated - continue add vanc for gram + showing on cultures -wond cultures pending with gram + ID and -yeast present -Blood cultures NGTD -Urine cult negative Code(s): L02.215 - CUTANEOUS ABSCESS OF PERINEUM (2) JAMSHID (acute kidney injury) Current Visit: Yes Status: Acute Assessment & Plan: -on admission 1.58- baseline creat around 1 -resolved Code(s): N17.9 - ACUTE KIDNEY FAILURE, UNSPECIFIED (3) Alcohol use disorder Current Visit: Yes Status: Acute Assessment & Plan: -6 beers daily -CIWA protocol -no symptoms of w/d Code(s): F10.90 - ALCOHOL USE, UNSPECIFIED, UNCOMPLICATED (4) Dizziness Current Visit: Yes Status: Acute Assessment & Plan: - CT head: 12/14 IMPRESSION: 1. 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 2. Involutional brain changes . - CXR: 1. Haziness is seen in both lower zones, would recommend clinical and lab correlation to rule out pulmonary infection. 2. Age-indeterminate posttraumatic changes seen in the fourth, fifth and sixth ribs on right side. 3. Prominent thoracic aorta. Code(s): R42 - DIZZINESS AND GIDDINESS (5) Hyponatremia Current Visit: Yes Status: Acute Assessment & Plan: - Na+ 133 - IV fluids stopped 12/16/23 - Pt not drinking increased amount of fluids. Code(s): E87.1 - HYPO-OSMOLALITY AND HYPONATREMIA (6) Leukocytosis Current Visit: Yes Status: Acute Assessment & Plan: -2/2 to perineal abscess see plan above -resolved VTE: SCD's D/C plan: 1-2 days Code status: Full Code(s): L02.215 - CUTANEOUS ABSCESS OF PERINEUM (2) JAMSHID (acute kidney injury) Current Visit: Yes Status: Acute Code(s): N17.9 - ACUTE KIDNEY FAILURE, UNSPECIFIED (3) Alcohol use disorder Current Visit: Yes Status: Acute Code(s): F10.90 - ALCOHOL USE, UNSPECIFIED, UNCOMPLICATED (4) Dizziness Current Visit: Yes Status: Acute Code(s): R42 - DIZZINESS AND GIDDINESS (5) Hyponatremia Current Visit: Yes Status: Acute Code(s): E87.1 - HYPO-OSMOLALITY AND HYPONATREMIA (6) Leukocytosis Current Visit: Yes Status: Acute Code(s): D72.829 - ELEVATED WHITE BLOOD CELL COUNT, UNSPECIFIED
[2023-12-19 05:22] LABS: ALBUMIN 3.8 g/dL (3.5-5.0); BILIRUBIN,TOTAL 0.4 mg/dL (0.2-1.3); Calcium 9.3 mg/dL (8.4-10.2); Creatinine 1 0.47 mg/dL (0.66-1.25); EST GLOMERULAR FILTRATION RATE 117.5 ML/MIN; Total Protein 7.1 g/dL (6.3-8.2)
[2023-12-19 11:23] VITALS: BP 133/78; PULSE 71; TEMP 96.8; O2SAT 91
--- NOTE | 2023-12-19 15:38 | PCM.DS ---
Discharge Summary Date of Admission: 12/16/23 11:45 Date of Discharge: 12/19/23 Admitting Physician: AMIRA ARAGON MD Consults: Consults on Case 12/15/23 19:14 Consult Surgery ROUTINE Primary Care Provider: HAYDE CARLSON Allergies Allergies No Known Drug Allergies Allergy (Unverified 03/17/12 13:33) Hospital Summary - Hospital Course Hospital Course: is a 63 year old male with a pmhx of HTN, alcoholism (6 beers daily x decades, with no history of withdrawal) and recent right perineal/gluteal abscess (treated over the past week with Bactrim) admitted 12/15/23 after experiencing dizziness and a non-healing abscess and cellulitis which have failed OP antibiotics. Surgery consulted with intervention 12/16/23. IP antibiotics -Vanc/Zosyn/Flagyl. Wound cultures with yeast present - s taphylococcus ludgdunensis with sensitivity to levaquin. Patient will discharge with Daily dressing changes and wound therapy follow up on Monday. Patient agreeable to plan, cleared by surgery, and stable for discharge. Mother has been shown by nursing how to help with dressing changes with teach back. Discharge Note New Medications: Levaquin/diflucan Follow Up: PCP/surgery/wound therapy Latest Assessment & Plan (1) Perineal abscess, superficial Current Visit: Yes Status: Acute Assessment & Plan: -PODS#2 -Surgery following - intervention 12/16/23 -Zosyn/Flagyl initiated - continue add vanc for gram + showing on cultures -wond cultures pending with gram + ID and -yeast present -Blood cultures NGTD -Urine cult negative Code(s): L02.215 - CUTANEOUS ABSCESS OF PERINEUM (2) JAMSHID (acute kidney injury) Current Visit: Yes Status: Acute Assessment & Plan: -on admission 1.58- baseline creat around 1 -resolved Code(s): N17.9 - ACUTE KIDNEY FAILURE, UNSPECIFIED (3) Alcohol use disorder Current Visit: Yes Status: Acute Assessment & Plan: -6 beers daily -[facility] protocol -no symptoms of w/d Code(s): F10.90 - ALCOHOL USE, UNSPECIFIED, UNCOMPLICATED (4) Dizziness Current Visit: Yes Status: Acute Assessment & Plan: - CT head: 12/14 IMPRESSION: 1. 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 2. Involutional brain changes . - CXR: 1. Haziness is seen in both lower zones, would recommend clinical and lab correlation to rule out pulmonary infection. 2. Age-indeterminate posttraumatic changes seen in the fourth, fifth and sixth ribs on right side. 3. Prominent thoracic aorta. Code(s): R42 - DIZZINESS AND GIDDINESS (5) Hyponatremia Current Visit: Yes Status: Acute Assessment & Plan: - Na+ 133 - IV fluids stopped 12/16/23 - Pt not drinking increased amount of fluids. Code(s): E87.1 - HYPO-OSMOLALITY AND HYPONATREMIA (6) Leukocytosis Current Visit: Yes Status: Acute Assessment & Plan: -2/ to perineal abscess see plan above -resolved I spent 35 minutes [id number] with the patient on the day of discharge performing discharge exam, discussing hospital stay and discharge instructions with patient and caregivers, preparation of discharge records, prescriptions & referral forms and addressing any questions/concerns the patient had as documented above. - Vitals & Intake/Output Vital Signs: Vital Signs Temperature 96.8 F 12/19/23 11:23 Pulse Rate 71 12/19/23 11:23 Respiratory Rate 16 12/19/23 11:23 Blood Pressure 133/78 12/19/23 11:23 O2 Sat by Pulse Oximetry 91 L 12/19/23 11:23 Intake & Output: Intake & Output 12/17/23 12/18/23 12/19/23 12/20/23 11:59 11:59 11:59 11:59 Intake Total 2701 2902 480 120 Output Total 1375 1875 300 Balance 1326 1027 180 120 - Lab Result Diagrams: 12/19/23 04:24 12/19/23 04:24 Lab Results-Last 24 Hrs: Lab Results-Last 24 Hours 12/15/23 12/19/23 12/19/23 Range/Units 16:14 04:24 04:24 WBC 9.9 H (4.23-9.07) x10^3/uL RBC 3.93 L (4.63-6.08) x10^6/uL Hgb 13.0 L (13.7-17.5) g/dL Hct 39.4 L (40.1-51.0) % MCV 100.3 H (79.0-92.2) fL MCH 33.1 H (25.7-32.2) pg MCHC 33.0 (32.3-36.5) g/dL RDW 12.6 (11.6-14.4) % Plt Count 577 H (163-337) x10^3/uL MPV 9.1 L (9.4-12.4) fL Gran % 65.8 (34.0-67.9) % Immature Gran % (Auto) 3.0 H (0.001-0.429) % Nucleat RBC Rel Count 0.0 (0.00-0.2) % Eos # (Auto) 0.11 (0.04-0.54) x10^3/uL Immature Gran # (Auto) 0.30 H (0.001-0.031) x10^3u/L Absolute Lymphs (auto) 2.06 (1.32-3.57) x10^3/uL Absolute Monos (auto) 0.82 (0.30-0.82) x10^3/uL Absolute Nucleated RBC 0.00 (0.00-0.012) x10^3u/L Lymphocytes % 20.8 L (21.8-53.1) % Monocytes % 8.3 (5.3-12.2) % Eosinophils % 1.1 (0.8-7.0) % Basophils % 1.0 (0.2-1.2) % Absolute Granulocytes 6.53 H (1.78-5.38) x10^3/uL Basophils # 0.10 H (0.01-0.08) x10^3/uL Sodium 132 L (135-145) mmol/L Potassium 4.0 (3.5-5.1) mmol/L Chloride 100 (98-107) mmol/L Carbon Dioxide 24 (22-30) mmol/L Anion Gap 12.0 (5-15) MEQ/L BUN 12 (9-20) mg/dL Creatinine 0.47 L (0.66-1.25) mg/dL Estimated GFR 117.5 ML/MIN Glucose 108 H (74-106) mg/dL Calcium 9.3 (8.4-10.2) mg/dL Total Bilirubin 0.40 (0.2-1.3) mg/dL AST 53 (17-59) U/L ALT 62 H (0-50) U/L Alkaline Phosphatase 138 H (38-126) U/L Serum Total Protein 7.1 (6.3-8.2) g/dL Albumin 3.8 (3.5-5.0) g/dL Urine Opiates Level NEGATIVE (NEGATIVE) Ur Methadone NEGATIVE (NEGATIVE) Urine Barbiturates NEGATIVE (NEGATIVE) Ur Phencyclidine (PCP) NEGATIVE (NEGATIVE) Urine Amphetamine NEGATIVE (NEGATIVE) U Benzodiazepine Level NEGATIVE (NEGATIVE) Urine Cocaine NEGATIVE (NEGATIVE) Urine Marijuana (THC) NEGATIVE (NEGATIVE) Micro Results-Entire Visit: Microbiology 12/15/23 13:59 Wound Culture - Final Abcess Staphylococcus Lugdunensis 12/15/23 14:15 Blood Culture - Preliminary Blood 12/15/23 13:30 Blood Culture - Preliminary Blood 12/15/23 16:14 Urine Culture - Final Clean Catch Midstream MIXED ROX; 3 OR MORE TYPES. NO PREDOMINANT ORGANISM. NO FURTHER WORKUP. PLEASE RESUBMIT IF CLINICALLY INDICATED. - Procedures and Test Procedures and Tests throughout Hospitalization: Therapy Orders & Screens 12/15/23 20:31 OT Screen per Nursing Assess ONCE Comment: Protocol Order Physician Instructions: Greater than 3 points order OT Admission Screening Reason For Exam: Triggered on Admission Diagnosis: dizziness, abscess Open Wound/Cellutlitis/Pressure Ulcers: Yes Acute Fx/ORIF/Change in wt bearing status: No Severe MUSCULOSKELETAL pain: No ADL Dysfunction: No Acute CVA w/Hemiparesis/Hemiplegia: No Decreased Functional Mobility/Strength: No Sprain/Strain: No Acute Post-op Mobility Dysfunction: No Total Points: 5 PT Screen per Nursing Assess ONCE Comment: Protocol Order Physician Instructions: Greater than 3 points order PT Admission Screenin Reason For Exam: Triggered on Admission Diagnosis: dizziness, abscess Open Wound/Cellutlitis/Pressure Ulcers: Yes Acute Fx/ORIF/Change in wt bearing status: No Severe MUSCULOSKELETAL pain: No ADL Dysfunction: No Acute CVA w/Hemiparesis/Hemiplegia: No Decreased Functional Mobility/Strength: No Sprain/Strain: No Acute Post-op Mobility Dysfunction: No Total Points: 5 Smoking Cessation Education ONCE Comment: Diagnosis: dizziness, abscess Smoking Status: Current every day smoker How long have you smoked: 35 years Have you smoked in the past 12 months: Yes Approximately how many cigarettes per day: 2 ppd Do you dip or chew tobacco: No 12/17/23 12:30 PT Eval & Treat (MD Order) ONCE Reason for Eval:: wound care with wound vac per GS- will need OP f/u as well Diagnosis: dizziness, abscess Discharge Exam General Appearance: no apparent distress Neurologic Exam: alert, oriented x 3, cooperative Eye Exam: PERRL Ears, Nose, Throat Exam: normal ENT inspection Neck Exam: normal inspection Respiratory Exam: normal breath sounds, lungs clear Cardiovascular Exam: regular rate/rhythm, normal heart sounds Gastrointestinal/Abdomen Exam: soft, normal bowel sounds Male Genitalia Exam: deferred Rectal Exam: deferred Back Exam: normal inspection Extremity Exam: normal inspection Skin Exam: other (see wound assessment) Wound Assessment: Skin/Wound Assessment Wound/Incision Assessment Start: 12/15/23 18:21 Text: Status: Active Freq: Q6H Protocol: Document 12/19/23 08:00 [facility] (Rec: 12/19/23 10:52 RDNE [id number]) Wound/Incision Assessment right perineal Wound Assessment Shift Assessment Wound Type ulceration Wound Stage Non Pressure Wound Dressing Status Dry & Intact Drainage Amount None Perineum Wound Assessment Shift Assessment Wound Type ABCESS Wound Stage Non Pressure Wound Dressing Status Dry & Intact Drainage Amount None Drainage Odor None/Absent Primary Dressing BORDERED GAUZE Right Buttock Wound Assessment Shift Assessment Wound Type gluteal abscess s/p I&D Wound Stage Non Pressure Wound Dressing Status Dry & Intact,Changed Drainage Amount None Primary Dressing BORDERED GAUZE Wound Photo Photo Taken No Final Diagnosis/Problem List - Final Discharge Diagnosis/Problem (1) Perineal abscess, superficial Current Visit: Yes Status: Acute Code(s): L02.215 - CUTANEOUS ABSCESS OF PERINEUM (2) JAMSHID (acute kidney injury) Current Visit: Yes Status: Acute Code(s): N17.9 - ACUTE KIDNEY FAILURE, UNSPECIFIED (3) Alcohol use disorder Current Visit: Yes Status: Acute Code(s): F10.90 - ALCOHOL USE, UNSPECIFIED, UNCOMPLICATED (4) Dizziness Current Visit: Yes Status: Acute Code(s): R42 - DIZZINESS AND GIDDINESS (5) Hyponatremia Current Visit: Yes Status: Acute Code(s): E87.1 - HYPO-OSMOLALITY AND HYPONATREMIA (6) Leukocytosis Current Visit: Yes Status: Acute Code(s): D72.829 - ELEVATED WHITE BLOOD CELL COUNT, UNSPECIFIED - Discharge Disposition: Home, Self-Care Condition: Stable Prescriptions: New Fluconazole 200 mg PO DAILY 11 Days #11 tablet Folic Acid 1 mg [Folate 1 mg] 1 mg PO DAILY 30 Days #30 tab Hydrocodone/Acetaminophen [Hydrocodone-Acetamin 5-325 mg] 1 tab PO Q4HPRN PRN 3 Days #18 tablet MDD 6 PRN Reason: Pain levoFLOXacin [Levofloxacin] 750 mg PO DAILY 10 Days #10 tablet PANTOPRAZOLE 40 mg Tablet [Protonix 40MG Tablet] 40 mg PO BID 14 Days #28 tablet Multivitamins,Therapeutic Tab* [Theragran Multivitamin] 1 tab PO QAM 30 Days #30 tablet Thiamine HCl 100 mg [Vitamin B-1 100 mg] 100 mg PO DAILY 30 Days #30 tablet Continue Lisinopril 20 mg PO DAILY Bupropion HCl 150 mg Sr [Wellbutrin SR 150 MG] 150 mg PO BID Diclofenac Sodium [Voltaren] 75 mg PO DAILY Discontinued Smz/Tmp Ds Tablet [Bactrim Ds Tablet] 1 tab PO Q12H Additional Instructions: DO DRESSING CHANGES SHOWN DAILY AND NEEDED. YOU HAVE AN APT ON 12/26/23@815 AT THE [facility]. IT IS LOCATED AT [facility] IN [address]. THEY WILL INSTRUCT YOU ON WOUND CARE AFTER THAT. Follow up with: MOISE ESPINO [COURTESY STAFF] - 01/15/24 8:40 am ([place] Office) HAYDE CARLSON NP [Primary Care Provider] - 12/28/23 9:15 am
== END 2023-12-19 16:32 | disposition home or self-care (01) | DRG 571 ==
LOC: ED 13:29 → MED SURG 18:17 → OBSVTOIN 12-16 11:45 → ED 12-16 13:29 → MED SURG 12-16 18:17
PROVIDERS: ADMIT Internal Medicine; ATTEND Internal Medicine
PROC: 0JB90ZZ Excision of Buttock Subcutaneous Tissue and Fascia, Open Approach (ICD-10-PCS; principal; 2023-12-16)
DX: L02.215 Cutaneous abscess of perineum (principal); E87.1 Hypo-osmolality and hyponatremia; N17.9 Acute kidney failure, unspecified; F10.90 Alcohol use, unspecified, uncomplicated; R42 Dizziness and giddiness; D72.829 Elevated white blood cell count, unspecified; I10 Essential (primary) hypertension; E78.5 Hyperlipidemia, unspecified; Z79.899 Other long term (current) drug therapy; Z11.52 Encounter for screening for COVID-19
CPT/HCPCS: 36000; 36415; 70450; 71045; 80053; 80307; 81001; 82077; 82607; 82728; 82746; 83540; 83550; 83605; 83735; 83880; 84295; 84484; 85025; 85027; 85610; 85730; 87040; 87070; 87075; 87077; 87086; 87186; 93005; 93041; 93268; 96360; 96365; 96374; 99285; J1100; J1170; J1450; J2060; J2270; J2405; J2704; J3010; Q3014; A9270-GY; G0378; J3370